=== PATIENT | female | born 1930 | race Caucasian/White ===

== ENCOUNTER 2016-07-13 14:56 | Inpatient (IN) | payer MEDICARE, OTHER ==
[~2016-07-13] VITALS: Ht 152.4 cm; Wt 66.9 kg
[2016-07-13] MEDS ORDERED: ESTR1TAB PO (15:18)
[2016-07-13] MEDS ORDERED: VALS80TA PO (15:18)
[2016-07-13] MEDS ORDERED: FISH1000 PO (15:18)
[2016-07-13] MEDS ORDERED: MULT1TAB10 PO (15:18)
[2016-07-13] MEDS ORDERED: l-thyroxine PO (15:18)
[2016-07-13] MEDS ORDERED: POTA99TA PO (15:18)
[2016-07-13] MEDS ORDERED: vitamin b 12 PO (15:18)
[2016-07-13] MEDS ORDERED: CELE100C PO (15:18)
[2016-07-13] MEDS ORDERED: vitamin d PO (15:18)
[2016-07-13] MEDS ORDERED: OMEP40CA2 PO (15:18)
[2016-07-13] MEDS ORDERED: SIMV40TA2 PO (15:18)
[2016-07-13] MEDS ORDERED: COMB0.2S OP (15:24)
[2016-07-13] MEDS ORDERED: OCUVTAB PO (15:24)
[2016-07-13] MEDS ORDERED: ISOVUE-370 76% 100ML VIAL (Q9967) As Ordered ONE (15:56)
[2016-07-13 15:58] LABS: INR 0.96
[2016-07-13] MEDS ORDERED: NS 1,000 ML IV SCH (16:00)
--- NOTE | 2016-07-13 16:57 | REP ---
CT pulmonary angiogram: With IV contrast: History: Question pulmonary embolism. DVT right leg. Comparison studies: No comparison studies. Contrast dose: 75 mL of Isovue [address] technique: Helical scanning is acquired and overlapping 1.5 mm and contiguous 3 mm axial images are reformatted. In addition, a 3-D work station is deployed to generate thick slab maximum intensity projection images in sagittal and coronal imaging projections. CT pulmonary angiographic findings: There is good opacification of the pulmonary arterial tree. There is a somewhat linear filling defect in the right pulmonary arterial tree involving the right upper lobe, right middle lobe, and right lower lobe pulmonary arteries consistent with pulmonary embolism. No left sided filling defect is appreciated. The thoracic aorta is unremarkable. The lung hernadez are clear. No pleural effusion is seen. Previously noted low density right lobe liver cyst is again seen 3.1 cm in greatest diameter. The visualized upper abdominal structures are otherwise unremarkable. The gallbladder is surgically absent. Impression: Positive study for pulmonary embolus with filling defects in the right middle, lower and upper lobe pulmonary arterial tree branches. Signed by Fernando Childers MD 07/14/2016 07:54 A
[2016-07-13] MEDS ORDERED: SYNT75TA PO (19:12)
[2016-07-13] MEDS ORDERED: hydrALAZINE INJ 20 MG/ML VIAL IV ONE (20:00)
[2016-07-13] MEDS ORDERED: HEPARIN DRIP 25,000 UNITS in APPROPRIATE DILUENT 1 EA IV SCH ×2 (20:56→22:25)
[2016-07-13] MEDS ORDERED: ONDANSETRON 4MG/2ML VIAL (J2405) IV PRN (21:00)
[2016-07-13] MEDS ORDERED: PERCOCET 5MG/325MG TAB PO PRN (21:00)
[2016-07-13] MEDS ORDERED: ONDANSETRON 4 MG TAB (S0181) PO PRN (21:00)
[2016-07-13] MEDS ORDERED: HEPARIN SOD (PORCINE) 5000 UNITS/ML VIAL IV PRN ×2 (21:00→22:15)
[2016-07-13] MEDS ORDERED: LEVOTHYROXINE 0.075 MG TAB (75 MCG) PO SCH (21:00)
[2016-07-13] MEDS ORDERED: ACETAMINOPHEN TAB 650MG DOSE (2X325MG) PO PRN (21:00)
--- NOTE | 2016-07-13 21:34 | HPEPDOC ---
Medical History and Physical Date of Admission Jul 13, 2016 at 20:56 History and Physical HISTORY AND PHYSICAL Date of admission: 07/13/2016 PCP: Dr. Nguyen Chief complaint: Pain and swelling of right lower extremity as well as shortness of breath HPI: 86-year-old female with arthritis, hypertension, hypothyroidism, hyperlipidemia who presented to urgent care today because she had pain and swelling in her right lower extremity for approximately 1 week. She states that she tried to go to her PCP, but was unable to get an appointment. At urgent care , they did a bilateral lower extremity Doppler which revealed a DVT in the right femoral and popliteal veins. She was then sent to the ER for further treatment, and in the ER, she endorsed dyspnea on exertion, and a CTA of her chest shows multiple PEs in the right middle, lower, upper lobes. The patient denies any recent long plane or car rides. She does state that her sister has clots but she is not sure why. When asked if she is ever had blood clots before , she mentions that in 1950, she had a clot on the heel of her foot and they put her on some Motrin for. Of note, the patient is on estrogen at home. The patient states that her last colonoscopy was in 2001 and was normal. She thinks her last mammogram was approximately 2-3 years ago and was also normal. She thinks her last Pap smear was around 2007 and was also normal. Past medical history: Arthritis, hypertension, hypothyroidism, hyperlipidemia Past surgical history: BTL, appendectomy, cholecystectomy, hysterectomy Family history: Cancer, coronary artery disease, sister with blood clots Social history: Patient denies ever smoking tobacco. She does not use any drugs or drink alcohol. Allergies: Colchicine, doxycycline Review of systems: General: Positive for chills, negative for fever Eyes: Negative for vision changes and ocular discharge ENT: Negative for sore throat and nose bleed Cardiovascular: Negative for chest pain and palpitations Respiratory: Negative for cough, positive for shortness of breath GI: Positive for nausea and vomiting, negative for diarrhea and constipation Musculoskeletal: Negative for neck and back pain Skin: Negative for rash Neuro: Positive for headache and dizziness, negative for numbness and tingling Psych: Negative for depression and suicidal ideation Endocrine: Negative for polyuria : Negative For dysuria Heme: Negative for bleeding Home meds: See below Physical exam: Vital signs: Vital Sign - Last 24 Hours 07/13/16 07/13/16 07/13/16 07/13/16 14:57 15:06 15:59 17:22 Temp 97.7 Pulse 71 Resp 16 B/P (MAP) 215/93 (133) 187/87 (120) 155/80 (105) Pulse Ox 97 O2 Delivery Room Air 07/13/16 07/13/16 07/13/16 07/13/16 17:26 17:37 17:41 17:52 Pulse 78 78 B/P (MAP) 210/101 (137) 208/92 (130) Pulse Ox 93 95 07/13/16 07/13/16 07/13/16 07/13/16 17:56 18:11 18:16 18:26 Temp 98.1 Pulse 80 78 74 76 Resp 20 B/P (MAP) 178/90 (119) Pulse Ox 95 97 96 94 O2 Delivery Room Air 07/13/16 07/13/16 07/13/16 07/13/16 18:41 18:56 19:11 19:26 Pulse 78 78 76 74 Pulse Ox 94 94 95 95 07/13/16 07/13/16 07/13/16 07/13/16 19:41 19:56 19:56 20:08 Pulse 76 76 B/P (MAP) 200/98 (132) 200/98 Pulse Ox 94 95 07/13/16 07/13/16 07/13/16 07/13/16 20:11 20:26 20:41 20:56 Pulse 76 78 88 76 B/P (MAP) 190/98 (128) Pulse Ox 96 97 96 Gen.: awake, alert, no acute distress Eyes: Extraocular movements intact, normal sclera ENT: Moist mucous membranes Cardiovascular: RRR, no murmurs rubs or gallops Lungs: clear to auscultation bilaterally, no rales, rhonchi, or wheeze Abdomen: Soft, NT/ND, normal BS Musculoskeletal: normal range of motion Extremities: 2+ edema in the right lower extremity, 1+ edema in the left lower extremity Neuro: alert and oriented 3, normal speech, no focal deficits Psych: Normal mood with congruent affect Labs and radiology: See below BUN 27, creatinine 1.34 Troponin negative BNP normal D-dimer elevated CT of the chest shows PE in the right middle, lower, upper lobes Bilateral lower extremity Doppler shows an occlusive right DVT in the femoral and popliteal veins Assessment and plan: 86-year-old female with arthritis, hypertension, hypothyroidism, hyperlipidemia who presented to urgent care today because she had pain and swelling in her right lower extremity for approximately 1 week. She is admitted with right lower extremity DVT, as well as multiple PEs. 1. VTE: It appears that this is likely the patient's first blood clot, and given her age, it is extremely unlikely that she has underlying clotting disorder. We will check a few hypercoagulability values, but I suspect that potentially this is secondary to the fact that she has been on estrogen. We'll of course hold her home estrogen. Given the multiple clots, we'll start her on a heparin drip and begin bridging her to Coumadin. At this point she is hemodynamically stable, but given her multiple clots we will assess an echocardiogram to ensure there is no strain on her heart. Additionally, one might wonder if she has an underlying malignancy. It appears that the patient is overdue on many of her screening exams, although given her advanced age, it is not unreasonable for her to have stopped screening several years ago. She may consider further evaluation with her PCP for possible underlying malignancy. Her initial troponin is negative, but we will continue to trend these and monitor on telemetry. 2. Accelerated hypertension: We will continue the patient on her home ARB and HCTZ. We will use as needed hydralazine for significantly elevated blood pressures. 3. Hypothyroidism: Continue home Synthroid. 4. Hyperlipidemia: Continue home statin. DVT prophylaxis: Heparin drip bridging to Coumadin Dispo: admit as an inpatient on the service of Dr. Wilkinson CODE STATUS: Full code Vital Signs Vital Signs Date Time Temp Pulse Resp B/P (MAP) Pulse Ox O2 Delivery O2 Flow Rate FiO2 07/13/16 20:56 76 190/98 (128) 96 07/13/16 18:16 98.1 20 Room Air Laboratory Data Labs 24H Laboratory Tests 2 07/13/16 13:52: Prothrombin Time 12.9, Prothromb Time International Ratio 0.96, Activated Partial Thromboplast Time 29.6, Troponin I < 0.02 Home Medications Scheduled (Valsartan/Hydrochlorothia 80-12.5 mg) 1 Tab Tab, 1 TAB PO DAILY (Combigan 0.2-0.5 %) 1 Lucas Lucas, 1 LUCAS OP BID Celecoxib (Celebrex) 100 Mg Cap, 100 MG PO QHS Estradiol (Estradiol) 1 Mg Tab, 2 MG PO DAILY In the Afternoon Levothyroxine Sodium (Synthroid) 75 Mcg Tab, 75 MCG PO QHS Potassium (Potassium) 99 Mg Tab, 99 MG PO QHS Simvastatin - High Dose (Simvastatin) 40 Mg Tab, 40 MG PO QHS Allergies Coded Allergies: Colchicine (Verified Allergy, Severe, GI bleed, 07/13/16) Doxycycline (Verified Allergy, Intermediate, cellulitis, 07/13/16) BELLA PHILLIPS Jul 13, 2016 21:33
[2016-07-13] MEDS ORDERED: HEPARIN SOD (PORCINE) 5000 UNITS/ML VIAL IV ONE (21:45)
[2016-07-13 22:24] LABS: MEAN CORPUSCULAR HEMOGLOBIN 33.1 pg (27.0-33.0); MEAN CORPUSCULAR HGB CONC 34.7 g/dl (32.0-36.5); MEAN CORPUSCULAR VOLUME 95.5 fl (80.0-96.0); RED CELL DISTRIBUTION WIDTH 12.6 % (11.5-14.5); WHITE BLOOD COUNT 9.5 K/mm3 (4.0-10.0)
[2016-07-13] MEDS: WARFARIN SOD 5 MG TAB PO SCH (22:38)
[2016-07-13] MEDS: hydrALAZINE INJ 20 MG/ML VIAL IV PRN (22:39)
[2016-07-13] MEDS: SIMVASTATIN 40 MG TAB PO SCH (23:59)
[2016-07-14] VITALS (12 sets, daily range): BP systolic 139–184; BP diastolic 62–88
[2016-07-14] MEDS: hydrALAZINE INJ 20 MG/ML VIAL IV PRN (01:13)
[2016-07-14 05:14] LABS: BASO % 0.5 % (0.0-1.0); EOS # 0.3 K/mm3 (0.0-0.50); LARGE UNSTAINED CELL # 0.2 K/mm3 (0.0-0.4); LARGE UNSTAINED CELL % 1.6 % (0.0-4.0); LYMPH # 2.1 K/mm3 (1.5-4.5); LYMPH % 19.6 % (24.0-44.0); MEAN CORPUSCULAR HEMOGLOBIN 32.6 pg (27.0-33.0); MEAN CORPUSCULAR HGB CONC 33.9 g/dl (32.0-36.5); MONO # 0.5 K/mm3 (0.0-0.8); MONO % 4.8 % (0.0-5.0); NEUTROPHILS # 7.6 K/mm3 (1.8-7.7); NEUTROPHILS % 70.7 % (36.0-66.0); PLATELET COUNT, AUTOMATED 260 k/mm3 (150-450); RED CELL DISTRIBUTION WIDTH 12.3 % (11.5-14.5); WHITE BLOOD COUNT 10.8 K/mm3 (4.0-10.0)
[2016-07-14 05:28] LABS: INR 1.13
[2016-07-14 05:36] LABS: ANION GAP 10 MEQ/L (8-16); BLOOD UREA NITROGEN 19 MG/DL (7-18); CALCIUM LEVEL 9.2 MG/DL (8.8-10.2); CARBON DIOXIDE LEVEL 26 MEQ/L (21-32); CHLORIDE LEVEL 103 MEQ/L (98-107); CREATININE FOR GFR 1.19 MG/DL (0.55-1.02); GLOMERULAR FILTRATION RATE 45.9 (>32); GLUCOSE, FASTING 101 MG/DL (83-110); MAGNESIUM LEVEL 1.6 MG/DL (1.8-2.4); POTASSIUM SERUM 3.6 MEQ/L (3.5-5.1); SODIUM LEVEL 139 MEQ/L (136-145)
[2016-07-14] MEDS: LEVOTHYROXINE 0.075 MG TAB (75 MCG) PO SCH (05:47)
--- NOTE | 2016-07-14 08:26 | ECGEPIP ---
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 Order Number: [id number] Reading MD: Julio Tim Measurements Intervals [place] Rate: 79 P: 57 [place]: 192 QRS: 30 QRSD: 95 T: 33 QT: 393 QTc: 451 Interpretive Statements SINUS RHYTHM Electronically Signed On 07-14-2016 8:26:01 EDT by Julio Tim
[2016-07-14] MEDS ORDERED: LOVE0.4I2 SC (10:31)
[2016-07-14] MEDS ORDERED: COUM1TAB17 PO (10:31)
[2016-07-14] MEDS: VALSARTAN 80 MG TAB (DIOVAN) PO SCH (10:41)
[2016-07-14] MEDS: hydroCHLOROthiazide 12.5 MG CAPSULE PO SCH (10:41)
--- NOTE | 2016-07-14 10:43 | IPN ---
DATE: 07/14/2016 86-year-old female seen at bedside. She was admitted last evening for pulmonary emboli in the right upper, middle and lower lobe segments. This is a second occurrence with deep vein thrombosis (DVT), pulmonary embolism (PE)/venous thromboembolism for her during her lifetime. She was started on Coumadin with heparin bridging last night since this is a second occurrence. I did have a discussion at bedside regarding lifetime anticoagulation therapy versus IVC filter. At any rate, she needs to be on a minimum of anticoagulation therapy for 6 months since she has a pulmonary emboli. I did discuss options with other medications such as Xa inhibitors; however, for her she is likely a better candidate for Coumadin for anticoagulation therapy. She denies any chest pain, hemoptysis, productive sputum or cough. She does have some dyspnea on exertion, but she assures me this is no different from her baseline. OBJECTIVE: Temperature 98.5, pulse 88, respiratory rate 18, blood pressure (BP) 146/65, SPO2 is 94% on room air. General: The patient appears to be in no acute distress. She is alert and oriented. HEENT: Unremarkable. Lungs: Clear. Heart: Regular rate and rhythm. Abdomen: Soft. Extremities: No edema and no calf tenderness. LABORATORIES: White count 10.8, hemoglobin 13.2 and platelets are 260,000. Sodium 139, potassium 3.6, chloride 103, bicarb 26, anion gap 10, BUN is 19, creatinine is 1.19, glucose 101. CK is 70, CK-MB is 1.7, troponin less than 0.02. ASSESSMENT/PLAN: 1. Venous thromboembolism, second occurrence. She was started on heparin bridging with Coumadin. I am actually going to switch her to Lovenox weight-based subcutaneous every 12 hours. She will need some Lovenox teaching. Continue on Coumadin. Will have nursing contact Dr. Nguyen's office to be sure that he can do outpatient followup with PT/INR checks with Coumadin monitoring. Coagulopathy studies are pending at this time. 2. Accelerated hypertension. Continue to keep an eye on this as she appears to be stable now. 3. Hypothyroidism. Continue Synthroid. 4. Hyperlipidemia. Continue statin. 5. DVT prophylaxis, on Lovenox combined with Coumadin. DISPOSITION: Anticipate home discharge in the next 24 hours.
[2016-07-14] MEDS ORDERED: ENOXAPARIN 80 MG/0.8 ML SYRINGE (J1650) SC SCH (13:00)
[2016-07-14] MEDS: ENOXAPARIN 80 MG/0.8 ML SYRINGE (J1650) SC SCH (15:05)
[2016-07-14] MEDS: WARFARIN SOD 5 MG TAB PO SCH (17:03)
[2016-07-14] MEDS: SIMVASTATIN 40 MG TAB PO SCH (21:57)
--- NOTE | 2016-07-14 22:14 | ECHO ---
DATE OF PROCEDURE: 07/14/2016 AGE: 86 GENDER: Female HEIGHT: 60 inches WEIGHT: 154 pounds BODY SURFACE AREA: 1.67 m2 PATIENT LOCATION: Inpatient, PCU, room 3225 REFERRING PHYSICIAN: Elisa Chew MD INDICATION: Pulmonary embolism. 2D MEASUREMENTS: RV: 3.5 cm LV: 4.0 cm Septum: 1.0 cm Posterior wall: 1.0 cm Aortic root: 2.5 cm LA: 3.5 cm LVEF: 75% DOPPLER MEASUREMENTS: AV: 2.4 m/s LVOT: 1.2 m/s LVOT diameter: 1.6 cm Mean AV systolic gradient: 12 mmHg MV-E: 95, A: 110, EA ratio: 0.9 Early mitral deceleration time: 229 ms E prime: 6.8, A prime: 11, E/E prime ratio: 14 PV: 1.0 m/s Pulmonary artery acceleration time: 106 ms RVSP: 58 mmHg IVC: 1.5 cm COMMENTS: Normal sinus rhythm without intraventricular conduction disturbance. Normal cardiac chamber sizes and wall thickness. On real-time imaging from the parasternal and apical projections wall motion was symmetrical and hyperkinetic. Mildly thickened mitral annulus but normal leaflet thickness and excursion with no posterior systolic buckling. Three equal size aortic cusps with moderately thickened cusp edges and slightly reduced cusp separation. Normal aortic root size. No pericardial effusion. Could not rule out a small sessile vegetation of aortic valve because of the degree of calcification, but no obvious pedunculated vegetation. Color flow Doppler taken from the parasternal and apical projections showed very mild aortic, very mild mitral and mild-moderate tricuspid insufficiency. Guided continuous wave Doppler of her aortic valve and pulsed Doppler study of her LV outflow tract taken from the apical long axis and five chamber projection showed a mildly increased peak systolic velocity and mean gradient with dimensionless index of 0.44 - findings in keeping with some mild calcific aortic stenosis. Pulsed and continuous wave Doppler of her LV inflow tract taken from the apical four-chamber projection showed normal diastolic filling velocities against mitral stenosis. There was more prominent late diastolic/atrial dependent filling pattern. Degree of LV diastolic dysfunction was further confirmed by prolonged early mitral deceleration time and tissue Doppler of her mitral annulus. Her current estimated mean left atrial pressure was upper limits of normal. Pulsed and continuous wave Doppler of her pulmonary trunk showed a normal peak systolic velocity against RV outflow tract obstruction. Her pulmonary artery acceleration time was at least mildly abbreviated consistent with an elevated pulmonary vascular resistance. Guided continuous wave Doppler of her tricuspid valve allowed our estimation of her right ventricular systolic pressure (moderately increased). Her inferior vena cava was of normal size with normal respiratory collapse against an elevated central venous pressure. Color flow Doppler taken from the subcostal four-chamber projection showed a small patent foremen ovale with subtle [id number] shunting. CONCLUSIONS: Normal left ventricular size, wall thickness and hyperkinetic wall motion. Left atrial size upper limits of normal with Doppler evidence of impairment of LV diastolic function, but current estimated mean left atrial pressure upper limits of normal. Normal right heart chamber sizes, wall thickness and wall motion with Doppler evidence of moderate pulmonary hypertension. Normal inferior vena cava (IVC) size and collapse against an elevated central venous pressure. Mild calcific aortic stenosis with very mild insufficiency. Mild mitral annular calcification with very mild insufficiency.
[2016-07-14] MEDS ORDERED: SLF 3 ML SYR IV PRN (23:45)
[2016-07-15 03:35] VITALS: BP 167/72
[2016-07-15] MEDS: ENOXAPARIN 80 MG/0.8 ML SYRINGE (J1650) SC SCH (03:39)
[2016-07-15] MEDS: LEVOTHYROXINE 0.075 MG TAB (75 MCG) PO SCH (04:59)
[2016-07-15 05:51] LABS: BASO # 0.1 K/mm3 (0.0-0.2); BASO % 0.8 % (0.0-1.0); EOS # 0.3 K/mm3 (0.0-0.50); EOS % 3.7 % (0.0-3.0); LARGE UNSTAINED CELL # 0.2 K/mm3 (0.0-0.4); LARGE UNSTAINED CELL % 1.9 % (0.0-4.0); LYMPH # 2.1 K/mm3 (1.5-4.5); LYMPH % 21.4 % (24.0-44.0); MEAN CORPUSCULAR HEMOGLOBIN 32.6 pg (27.0-33.0); MEAN CORPUSCULAR HGB CONC 33.4 g/dl (32.0-36.5); MEAN CORPUSCULAR VOLUME 97.6 fl (80.0-96.0); MONO # 0.6 K/mm3 (0.0-0.8); MONO % 6.5 % (0.0-5.0); NEUTROPHILS % 65.7 % (36.0-66.0); PLATELET COUNT, AUTOMATED 247 k/mm3 (150-450); RED CELL DISTRIBUTION WIDTH 12.8 % (11.5-14.5); WHITE BLOOD COUNT 9.1 K/mm3 (4.0-10.0)
[2016-07-15 05:58] LABS: INR 1.32
[2016-07-15] MEDS ORDERED: SLF 3 ML SYR IV SCH (06:00)
[2016-07-15 06:09] LABS: CALCIUM LEVEL 9.2 MG/DL (8.8-10.2); CREATININE FOR GFR 1.44 MG/DL (0.55-1.02); GLOMERULAR FILTRATION RATE 36.8 (>32); MAGNESIUM LEVEL 1.7 MG/DL (1.8-2.4); POTASSIUM SERUM 3.9 MEQ/L (3.5-5.1)
[2016-07-15 08:00] VITALS: BP 105/60
[2016-07-15 08:37] VITALS: BP 167/72
[2016-07-15] MEDS: VALSARTAN 80 MG TAB (DIOVAN) PO SCH (08:37)
[2016-07-15] MEDS: hydroCHLOROthiazide 12.5 MG CAPSULE PO SCH (08:38)
[2016-07-15] MEDS ORDERED: MAGNESIUM OXIDE 400 MG TAB (MAG-OX) PO ONE (10:30)
[2016-07-15] MEDS ORDERED: LOVE0.4I2 SC (11:19)
--- NOTE | 2016-07-15 11:35 | DSES ---
DATE OF ADMISSION: 07/13/2016 DATE OF DISCHARGE: PRIMARY CARE PROVIDER: Dr. Nguyen CONSULTANTS: None. PROCEDURES: None. COMPLICATIONS: None. ADMISSION/DISCHARGE DIAGNOSES: 1. Pulmonary emboli with recurrent venous thromboembolism. 2. Accelerated hypertension, stable. May need further outpatient adjustments. 3. Hypothyroidism. 4. Hyperlipidemia. BRIEF HOSPITAL COURSE: 86-year-old female admitted on 07/13/2016 had some increasing shortness of breath, leg pain and found to have multiple pulmonary emboli on the right upper, middle and lower lobes on CT angiogram. We did discuss different options for treatment for this. She did elect to go with Coumadin therapy, which she will need some bridging therapy in the immediate time frame. Initially she was started on heparin drip. I did switch her to weight-based Lovenox. Will get her adjusted to the 1.5 mg/kg daily. She will need to undergo some further nursing teaching today for injections of the daily Lovenox, which she will need for 7 days for bridging while she continues on Coumadin. Will also need to make arrangements with Dr. Nguyen's office and perhaps nursing as an outpatient for daily INR checks so her Coumadin can be adjusted appropriately. She understands this plan. Additionally, she likely will need to be on this a minimum of 6 months. However, this likely is a recurrence which she may need lifetime therapy for. I will defer that discussion to her primary care provider. Additionally, she had a 2D echo that was done. The result of that test showed 75% left ventricular ejection fraction, relatively unremarkable echo except for mild calcified aortic stenosis with very mild insufficiency. There was no related right heart failure. DISCHARGE CONDITION: Good. DISPOSITION: Discharged to home. DISCHARGE MEDICATIONS: - Lovenox 100 mg daily - Coumadin 5 mg daily - Combigan eye drops twice a day - Synthroid 75 mcg daily - potassium one tablet at bedtime - Simvastatin 40 mg at bedtime - valsartan/hydrochlorothiazide 80/12.5 mg one tablet daily. 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 DISCHARGE INSTRUCTIONS: Discharge to home. Activity as tolerated. Medications as outlined above. Seek medical attention should symptoms worsen or progress. She will need daily INR checks with further Coumadin adjustments with her primary care provider. Discharge took 35 minutes.
[2016-07-15 12:00] VITALS: BP 111/66
== END 2016-07-15 14:16 | disposition home or self-care (01) | DRG 299 ==
LOC: M ED 16:12 → M ED INP 20:56 → M PCU 07-14 16:32
PROVIDERS: ADMIT Hospitalist; ATTEND Hospitalist
DX: I82.411 Acute embolism and thrombosis of right femoral vein (principal); I26.99 Other pulmonary embolism without acute cor pulmonale; I82.431 Acute embolism and thrombosis of right popliteal vein; R60.9 Edema, unspecified; E03.9 Hypothyroidism, unspecified; E78.5 Hyperlipidemia, unspecified; I10 Essential (primary) hypertension; Z79.899 Other long term (current) drug therapy; Z79.01 Long term (current) use of anticoagulants; Z88.8 Allergy status to other drugs, medicaments and biological substances

== ENCOUNTER → 2016-07-13 | Outpatient (CLI) | payer MEDICARE, OTHER ==
[~2016-07-13] MED LIST: CELE100C PO; COMB0.2S OP; COUM1TAB17 PO; ESTR1TAB PO; FISH1000 PO; LOVE0.4I2 SC; MULT1TAB10 PO; OCUVTAB PO; OMEP40CA2 PO; POTA99TA PO; SIMV40TA2 PO; SYNT75TA PO; VALS80TA PO; l-thyroxine PO; vitamin b 12 PO; vitamin d PO
--- NOTE | 2016-07-13 14:32 | REP ---
BILATERAL LOWER EXTREMITY DUPLEX VENOUS ULTRASOUND: HISTORY: Bilateral leg swelling. FINDINGS: The deep veins are anechoic and fully compressible on two-dimensional scanning in the left lower extremity from the groin to the popliteal fossa. Color flow and spectral Doppler interrogation are unremarkable on the left. There is no evidence of deep venous thrombosis on the left. On the right, the common femoral and proximal femoral veins are anechoic and compressible. There is occlusive thrombosis however in the distal femoral vein on the right and in the popliteal vein on the right. IMPRESSION: Positive study with occlusive venous thrombosis in the femoral vein and popliteal vein on the right side. No DVT on the left. Signed by Fernando Childers MD 07/13/2016 04:46 P
[2016-07-13 14:46] LABS: CREATININE FOR GFR 1.34 MG/DL (0.55-1.02); POTASSIUM SERUM 3.9 MEQ/L (3.5-5.1)
[2016-07-13 15:33] LABS: BASO # 0.1 K/mm3 (0.0-0.2); BASO % 0.8 % (0.0-1.0); EOS # 0.4 K/mm3 (0.0-0.50); EOS % 4.8 % (0.0-3.0); LARGE UNSTAINED CELL # 0.2 K/mm3 (0.0-0.4); LYMPH # 1.6 K/mm3 (1.5-4.5); LYMPH % 20.8 % (24.0-44.0); MEAN CORPUSCULAR HEMOGLOBIN 32.5 pg (27.0-33.0); MEAN CORPUSCULAR HGB CONC 33.2 g/dl (32.0-36.5); MEAN CORPUSCULAR VOLUME 97.8 fl (80.0-96.0); MONO # 0.5 K/mm3 (0.0-0.8); MONO % 5.8 % (0.0-5.0); NEUTROPHILS # 5.2 K/mm3 (1.8-7.7); NEUTROPHILS % 65.7 % (36.0-66.0); PLATELET COUNT, AUTOMATED 239 k/mm3 (150-450); RED CELL DISTRIBUTION WIDTH 12.4 % (11.5-14.5); WHITE BLOOD COUNT 7.8 K/mm3 (4.0-10.0)
== END ==
LOC: M RAD 13:29
PROVIDERS: ATTEND Physician Assistant
DX: I82.411 Acute embolism and thrombosis of right femoral vein (principal); I82.431 Acute embolism and thrombosis of right popliteal vein; R60.9 Edema, unspecified; M79.605 Pain in left leg

== ENCOUNTER → 2016-07-16 | Outpatient (CLI) | payer MEDICARE, OTHER ==
[2016-07-16 10:32] LABS: INR 2.18
== END ==
LOC: M LAB 09:27
PROVIDERS: ATTEND Student in an Organized Health Care Education/Training Program
DX: I26.99 Other pulmonary embolism without acute cor pulmonale (principal); I82.401 Acute embolism and thrombosis of unspecified deep veins of right lower extremity; Z79.01 Long term (current) use of anticoagulants

== ENCOUNTER → 2016-07-17 | Outpatient (CLI) | payer MEDICARE, OTHER ==
[2016-07-17 06:47] LABS: INR 3.47
== END ==
LOC: M LAB 06:02
PROVIDERS: ATTEND Student in an Organized Health Care Education/Training Program
DX: I82.401 Acute embolism and thrombosis of unspecified deep veins of right lower extremity (principal); I26.99 Other pulmonary embolism without acute cor pulmonale

== ENCOUNTER → 2016-07-18 | Outpatient (CLI) | payer MEDICARE, OTHER ==
[2016-07-18 09:28] LABS: INR 3.78
== END ==
LOC: M LAB 08:22
PROVIDERS: ATTEND Student in an Organized Health Care Education/Training Program
DX: I26.99 Other pulmonary embolism without acute cor pulmonale (principal); I82.401 Acute embolism and thrombosis of unspecified deep veins of right lower extremity

== ENCOUNTER → 2016-07-20 | Outpatient (CLI) | payer MEDICARE, OTHER ==
[2016-07-20 06:56] LABS: INR 2.79
== END ==
LOC: M LAB 06:02
PROVIDERS: ATTEND Student in an Organized Health Care Education/Training Program
DX: I82.401 Acute embolism and thrombosis of unspecified deep veins of right lower extremity (principal); I26.99 Other pulmonary embolism without acute cor pulmonale

== ENCOUNTER 2016-07-23 21:50 | Emergency (ER) | payer MEDICARE, OTHER ==
[~2016-07-23] VITALS: Ht 121.9 cm; Wt 69.1 kg
[~2016-07-23 21:50] MED LIST changes: -COMB0.2S OP; +COMB0.2S OU
[2016-07-23 23:43] LABS: BASO # 0.1 K/mm3 (0.0-0.2); BASO % 0.7 % (0.0-1.0); EOS # 0.3 K/mm3 (0.0-0.50); EOS % 2.2 % (0.0-3.0); LARGE UNSTAINED CELL # 0.2 K/mm3 (0.0-0.4); LARGE UNSTAINED CELL % 1.3 % (0.0-4.0); LYMPH # 1.7 K/mm3 (1.5-4.5); LYMPH % 12.2 % (24.0-44.0); MEAN CORPUSCULAR HEMOGLOBIN 32.2 pg (27.0-33.0); MEAN CORPUSCULAR HGB CONC 33.6 g/dl (32.0-36.5); MEAN CORPUSCULAR VOLUME 95.9 fl (80.0-96.0); MONO # 0.7 K/mm3 (0.0-0.8); MONO % 5.4 % (0.0-5.0); NEUTROPHILS # 9.8 K/mm3 (1.8-7.7); NEUTROPHILS % 78.2 % (36.0-66.0); PLATELET COUNT, AUTOMATED 377 k/mm3 (150-450); RED CELL DISTRIBUTION WIDTH 12.3 % (11.5-14.5); WHITE BLOOD COUNT 12.5 K/mm3 (4.0-10.0)
[2016-07-23 23:52] LABS: INR 4.1
--- NOTE | 2016-07-24 00:10 | REPUSA ---
Clinical history: Pain, swelling. Findings: There iis occlusive thrombus in the distal right superficial femoral vein. Recanalization o f thrombus There is noted in the midportion of the right superficial femoral vein and right poplitea l vein. Impression: Deep vein thrombosis in the superficial femoral and popliteal veins as described, which is occlusive in the distal right superficial femoral vein.
[2016-07-24 00:12] LABS: CALCIUM LEVEL 9.5 MG/DL (8.8-10.2); CREATININE FOR GFR 1.48 MG/DL (0.55-1.02); GLOMERULAR FILTRATION RATE 35.7 (>32); POTASSIUM SERUM 3.6 MEQ/L (3.5-5.1)
[2016-07-24] MEDS ORDERED: KETOROLAC 30 MG/ML VIAL (J1885) IV ONE (00:30)
[2016-07-24] MEDS ORDERED: dexameTHASONE 20 MG/5 ML VIAL (J1100) IV ONE (00:30)
[2016-07-24 01:12] VITALS: BP 140/94
[2016-10-27] MEDS ORDERED: CELE1CAP7 PO (09:06)
[2016-10-27] MEDS ORDERED: VALS160T3 PO (09:06)
[2016-10-27] MEDS ORDERED: RANI150T PO (09:06)
[2016-10-27] MEDS ORDERED: OCUVCAP2 PO (09:35)
[2016-10-27] MEDS ORDERED: XARE15TA PO (09:51)
[2016-10-27] MEDS ORDERED: SODI5OPD OU (09:51)
== END 2016-07-24 01:15 | disposition home or self-care (01) ==
LOC: M ED 21:50
DX: M79.604 Pain in right leg (principal); I82.401 Acute embolism and thrombosis of unspecified deep veins of right lower extremity; Z86.711 Personal history of pulmonary embolism; E03.9 Hypothyroidism, unspecified; M10.9 Gout, unspecified; I10 Essential (primary) hypertension; E78.5 Hyperlipidemia, unspecified; Z79.899 Other long term (current) drug therapy; Z88.1 Allergy status to other antibiotic agents; Z88.8 Allergy status to other drugs, medicaments and biological substances
CPT/HCPCS: 80048; 85025; 85610; 85730; 93971; 96374; 96375; 99283; J1100; J1885

== ENCOUNTER → 2016-07-23 | Outpatient (CLI) | payer MEDICARE, OTHER ==
[2016-07-23 06:55] LABS: INR 4.58
== END ==
LOC: M LAB 06:20
PROVIDERS: ATTEND Student in an Organized Health Care Education/Training Program
DX: I82.401 Acute embolism and thrombosis of unspecified deep veins of right lower extremity (principal); I26.99 Other pulmonary embolism without acute cor pulmonale; Z79.01 Long term (current) use of anticoagulants

== ENCOUNTER → 2016-07-27 | Outpatient (CLI) | payer MEDICARE ==
[~2016-07-27] MED LIST changes: +COMB0.2S OP; -COMB0.2S OU
[2016-07-27 09:54] LABS: MEAN CORPUSCULAR HEMOGLOBIN 32.9 pg (27.0-33.0); MEAN CORPUSCULAR HGB CONC 33.8 g/dl (32.0-36.5); MEAN CORPUSCULAR VOLUME 97.4 fl (80.0-96.0); RED CELL DISTRIBUTION WIDTH 12.3 % (11.5-14.5); WHITE BLOOD COUNT 8.7 K/mm3 (4.0-10.0)
[2016-07-27 11:33] LABS: CALCIUM LEVEL 9.3 MG/DL (8.8-10.2); CREATININE FOR GFR 1.47 MG/DL (0.55-1.02); URIC ACID 10.1 MG/DL (2.6-6.0)
== END ==
LOC: M LAB 09:06
PROVIDERS: ATTEND Family Medicine
DX: M25.50 Pain in unspecified joint (principal); Z79.01 Long term (current) use of anticoagulants

== ENCOUNTER → 2016-10-05 | Outpatient (CLI) | payer MEDICARE, OTHER ==
[~2016-10-05] MED LIST changes: +CELE1CAP7 PO; -COMB0.2S OP; +COMB0.2S OU; +E-Z-GAS II EFFERVESCENT PACKET (SODIUM BICARB./CITRIC ACID/SIMETHICONE) As Ordered ONE; +E-Z-HD 98% w/w 340GM SUSP BTL As Ordered ONE; +E-Z-PAQUE 96% w/w SUSP 176GM BTL As Ordered ONE; +OCUVCAP2 PO; +RANI150T PO; +SODI5OPD OU; +VALS160T3 PO; +XARE15TA PO
--- NOTE | 2016-10-05 11:01 | REP ---
ESOPHAGRAM: The procedure was performed by CHRISTOPHE Sesay under the direct supervision of Dr. Childers. All imaging was reviewed with Dr. Childers prior to dictation. A clinical dermatologist film showed no organomegaly or pathological masses. The patient was able to ingest liquid barium and air in a quantity sufficient to produce a double contrast examination. The oral and pharyngeal stages of deglutition appear unremarkable. Esophageal transport is prompt and efficient. There was no evidence of a esophagitis, structure or mucosal ring. A small hiatal hernia is noted. Gastroesophageal reflux was observed on this exam to the level of the cervical esophagus. Tertiary contractions were also noted. The stomach rodrigez were normally outlined. The rugal folds are smooth and regular. There was no evidence of gastritis, neoplasm or ulcerative disease. IMPRESSION: Reflux to the cervical esophagus. Tertiary contractions and a small hiatal hernia were noted. Fluoroscopy time is 1 minute 28 seconds. Reviewed by CHRISTOPHE Cheatham 10/05/2016 11:09 AEdited and Signed by Fernando Childers MD 10/05/2016 02:41 P
== END ==
LOC: M RAD 08:55
PROVIDERS: ATTEND Physician Assistant Medical
DX: R13.10 Dysphagia, unspecified (principal); R12 Heartburn; K44.9 Diaphragmatic hernia without obstruction or gangrene; K21.9 Gastro-esophageal reflux disease without esophagitis

== ENCOUNTER 2016-11-02 06:35 | Outpatient (CLI) | payer MEDICARE, OTHER ==
[~2016-11-02] VITALS: Ht 152.4 cm; Wt 68.4 kg
[~2016-11-02 06:35] MED LIST changes: -E-Z-GAS II EFFERVESCENT PACKET (SODIUM BICARB./CITRIC ACID/SIMETHICONE) As Ordered ONE; -E-Z-HD 98% w/w 340GM SUSP BTL As Ordered ONE; -E-Z-PAQUE 96% w/w SUSP 176GM BTL As Ordered ONE
[2016-11-02] MEDS ORDERED: PROPOFOL 200 MG/20 ML VIAL As Ordered ONE (07:02)
[2016-11-02] MEDS ORDERED: LIDOCAINE 2% INJ 100 MG/5 ML SDV (FOR ANES.) As Ordered ONE (07:05)
[2016-11-02] MEDS ORDERED: NS 1,000 ML IV ONE (07:15)
--- NOTE | 2016-11-02 07:48 | ROOR ---
Patient Name: Mi Walker Procedure Date: 11/02/2016 7:35 AM Date of : 1930 Age: 86 Room: [facility] Gender: Female Note Status: Finalized Procedure: Upper GI endoscopy Indications: Oropharyngeal phase dysphagia, Heartburn Providers: Job CROCKER MD Referring MD: Malachi Nguyen MD Requesting Provider: Medicines: Monitored Anesthesia Care Complications: No immediate complications. Procedure: Pre-Anesthesia Assessment: - The heart rate, respiratory rate, oxygen saturations, blood pressure, adequacy of pulmonary ventilation, and response to care were monitored throughout the procedure. The Endoscope was introduced through the mouth, and advanced to the second part of duodenum. The upper GI endoscopy was accomplished without difficulty. The patient tolerated the procedure well. Findings: Small Hiatal Hernia. The esophagus was normal. The stomach was normal. The examined duodenum was normal. Impression: - Small Hiatal Hernia. - Normal esophagus. - Normal stomach. - Normal examined duodenum. - No specimens collected. Recommendation: - Continue present medications. - Consider increased Omeprazole to twice a day dosing for continued symptoms. - Observe patient's clinical course. Job Crocker MD Job CROCKER MD 11/02/2016 7:47:39 AM This report has been signed electronically. Number of Addenda: 0 Note Initiated On: 11/02/2016 7:35 AM Estimated Blood Loss: Estimated blood loss: none.
[2016-11-02] MEDS ORDERED: ALBUTEROL SULFATE 2.5 MG/0.5 ML INH NEB SOLN As Ordered ONE (07:59)
[2016-11-02] MEDS ORDERED: ALBUTEROL SULFATE 2.5 MG/0.5 ML INH NEB SOLN INH ONE (08:15)
[2016-11-02 08:18] VITALS: BP 169/69
== END 2016-11-02 08:30 | disposition home or self-care (01) ==
LOC: M OPP 06:35
PROVIDERS: ATTEND Internal Medicine Gastroenterology
DX: R13.12 Dysphagia, oropharyngeal phase (principal); R12 Heartburn; K44.9 Diaphragmatic hernia without obstruction or gangrene; K21.9 Gastro-esophageal reflux disease without esophagitis; I12.9 Hypertensive chronic kidney disease with stage 1 through stage 4 chronic kidney disease, or unspecified chronic kidney disease; E78.5 Hyperlipidemia, unspecified; R01.1 Cardiac murmur, unspecified; M10.9 Gout, unspecified; E03.9 Hypothyroidism, unspecified; Z86.718 Personal history of other venous thrombosis and embolism; M19.90 Unspecified osteoarthritis, unspecified site; M54.2 Cervicalgia; E55.9 Vitamin D deficiency, unspecified; Z86.711 Personal history of pulmonary embolism; N18.9 Chronic kidney disease, unspecified; R32 Unspecified urinary incontinence; Z88.8 Allergy status to other drugs, medicaments and biological substances; Z79.899 Other long term (current) drug therapy

== ENCOUNTER → 2017-08-31 | Outpatient (REF) | payer MEDICARE, OTHER ==
[2017-08-31 18:12] LABS: APPEARANCE, URINE HAZY (CLEAR); BACTERIA, URINE AUTO NEGATIVE (NEGATIVE); BILIRUBIN, URINE AUTO NEGATIVE (NEGATIVE); BLOOD, URINE BLOOD NEGATIVE (NEGATIVE); COLOR, URINE YELLOW (YELLOW); GLUCOSE, URINE (UA) AUTO NEGATIVE (NEGATIVE); KETONE, URINE AUTO NEGATIVE (NEGATIVE); LEUKOCYTE ESTERASE, URINE AUTO TRACE (NEGATIVE); MUCUS, URINE SMALL (NEGATIVE); NITRITE, URINE AUTO NEGATIVE (NEGATIVE); PROTEIN, URINE AUTO NEGATIVE (NEGATIVE); RBC, URINE AUTO 4 /HPF (0-3); SPECIFIC GRAVITY URINE AUTO 1.016 (1.002-1.035); SQUAMOUS EPITHELIAL CELL UR AU 4 /HPF (0-6); UROBILINOGEN, URINE AUTO 0.2 mg/dL (0.0-2.0); WBC, URINE AUTO 2 /HPF (0-3)
== END ==
LOC: M LAB REF 17:04
DX: N39.41 Urge incontinence (principal)
CPT/HCPCS: 81001

== ENCOUNTER → 2018-03-16 | Outpatient (REF) | payer MEDICARE, OTHER ==
[2018-03-16 13:37] LABS: BASO # 0.1 10^3/uL (0.0-0.2); BASO % 1.4 % (0.0-1.0); EOS # 0.4 10^3/uL (0.0-0.50); EOS % 5.2 % (0.0-3.0); HEMATOCRIT 40.4 % (36.0-47.0); HEMOGLOBIN 13.1 g/dl (12.0-15.5); LYMPH # 2.1 10^3/uL (1.5-4.5); LYMPH % 27.5 % (24.0-44.0); MEAN CORPUSCULAR HGB CONC 32.4 g/dl (32.0-36.5); MEAN CORPUSCULAR VOLUME 95.7 fl (80.0-96.0); MONO # 0.8 10^3/uL (0.0-0.8); MONO % 10.6 % (0.0-5.0); NEUTROPHILS # 4.2 10^3/uL (1.8-7.7); PLATELET COUNT, AUTOMATED 281 10^3/uL (150-450); RED BLOOD COUNT 4.22 10^6/uL (4.00-5.40); WHITE BLOOD COUNT 7.7 10^3/uL (4.0-10.0)
[2018-03-16 13:54] LABS: ALT/SGPT 20 U/L (12-78); BILIRUBIN,TOTAL 0.5 MG/DL (0.2-1.0); BLOOD UREA NITROGEN 18 MG/DL (7-18); C REACTIVE PROTEIN QUANTITATIV < 0.30 MG/DL (0.00-0.30); CALCIUM LEVEL 9.7 MG/DL (8.8-10.2); CARBON DIOXIDE LEVEL 27 MEQ/L (21-32); CHLORIDE LEVEL 106 MEQ/L (98-107); CREATININE FOR GFR 1.56 MG/DL (0.55-1.30); GLOMERULAR FILTRATION RATE 33.5 (>32); GLUCOSE, FASTING 97 MG/DL (70-100); POTASSIUM SERUM 4.6 MEQ/L (3.5-5.1); RHEUMATOID FACTOR QUANT < 10.0 IU/ML (<15.0); SODIUM LEVEL 139 MEQ/L (136-145); TOTAL PROTEIN 7.1 GM/DL (6.4-8.2); URIC ACID 6.6 MG/DL (2.6-6.0)
[2018-03-16 14:10] LABS: ERYTHROCYTE SEDIMENTATION RATE 22 mm/hr (0-42)
== END ==
LOC: M SFHCPLAZ 10:47
PROVIDERS: ATTEND Internal Medicine Rheumatology
DX: M10.09 Idiopathic gout, multiple sites (principal)
CPT/HCPCS: 36415; 80053; 84550; 85025; 85652; 86140; 86200; 86431; G0463

== ENCOUNTER → 2019-02-28 | Outpatient (REF) | payer MEDICARE, OTHER ==
[~2019-02-28] MED LIST changes: -OMEP40CA2 PO; +OMEP40CA97 PO; -SIMV40TA2 PO; +SIMV40TA20 PO
[2019-02-28 13:31] LABS: BACTERIA, URINE AUTO NEGATIVE (NEGATIVE); MUCUS, URINE SMALL (NEGATIVE); RBC, URINE AUTO 1 /HPF (0-3); SQUAMOUS EPITHELIAL CELL UR AU 1 /HPF (0-6); TRANSITIONAL EPITHELIAL AUTO 1 /HPF; WBC, URINE AUTO 0 /HPF (0-3)
== END ==
LOC: M SMT 12:17
PROVIDERS: ATTEND Specialist
DX: R32 Unspecified urinary incontinence (principal)
CPT/HCPCS: 51798; 81015; 87086; G0463

== ENCOUNTER 2019-03-21 10:54 | Outpatient (RCR) | payer MEDICARE, OTHER | END 2019-04-08 | LOC: M PT 10:54 | PROVIDERS: ATTEND Specialist | DX: R32 Unspecified urinary incontinence (principal); R15.9 Full incontinence of feces ==

== ENCOUNTER 2019-05-04 09:53 | Outpatient (RCR) | payer MEDICARE, OTHER | END 2019-05-09 | LOC: M PT 09:53 | PROVIDERS: ATTEND Specialist | DX: R32 Unspecified urinary incontinence (principal); R15.9 Full incontinence of feces ==

== ENCOUNTER 2019-05-25 10:53 | Outpatient (RCR) | payer MEDICARE, OTHER | END 2019-06-08 | LOC: M PT 10:53 | PROVIDERS: ATTEND Specialist | DX: R32 Unspecified urinary incontinence (principal); R15.9 Full incontinence of feces ==

== ENCOUNTER → 2019-10-14 | Outpatient (CLI) | payer MEDICARE, OTHER ==
[~2019-10-14] MED LIST changes: +ACET-683 PO; +ACET1TAB16 PO; +ACET1TAB55 PO; +AMLO1TAB24 PO; +AMLO1TAB25 PO; +ATOR1TAB21 PO; +CEFA1INJ4 IV; +CEPH500C PO; +COZA50TA PO; +DOCU100C16 PO; +FLEEENE12 PR; +HM P99TA PO; +HYDR25TA PO; +HYDR50TA PO; +LATA0.0015 OU; +LEVO75TA4 PO; +LOSA100T50 PO; +MECL12.589 PO; +METO1TAB87 PO; +OMEP-218 PO; +OMEP20TA18 PO; +ONDA-83 PO; +PEG1POW PO; +RISATAB3 PO; +SENN-52 PO; +TRAM50TA2 PO; +XALA0.007 OU
== END ==
LOC: M LABSMTC 09:38
PROVIDERS: ATTEND Orthopaedic Surgery
DX: Z20.828 Contact with and (suspected) exposure to other viral communicable diseases (principal)

== ENCOUNTER → 2019-10-19 | Outpatient (CLI) | payer MEDICARE, OTHER | LOC: M LABSMTC 09:57 | PROVIDERS: ATTEND Orthopaedic Surgery | DX: Z20.828 Contact with and (suspected) exposure to other viral communicable diseases (principal) ==

== ENCOUNTER 2019-10-27 15:07 | Inpatient (IN) | payer MEDICARE, OTHER ==
[2019-10-27] VITALS (8 sets, daily range): BP systolic 111–199; BP diastolic 54–83
[~2019-10-27] VITALS: Ht 152.4 cm; Wt 70.3 kg
[~2019-10-27 15:07] MED LIST changes: -ACET-683 PO; -ACET1TAB16 PO; -ACET1TAB55 PO; -AMLO1TAB24 PO; -AMLO1TAB25 PO; -ATOR1TAB21 PO; -CEFA1INJ4 IV; -CEPH500C PO; -COZA50TA PO; -DOCU100C16 PO; -FLEEENE12 PR; -HM P99TA PO; -HYDR25TA PO; -HYDR50TA PO; -LATA0.0015 OU; -LEVO75TA4 PO; -LOSA100T50 PO; -MECL12.589 PO; -METO1TAB87 PO; -OMEP-218 PO; -OMEP20TA18 PO; -ONDA-83 PO; -PEG1POW PO; -RISATAB3 PO; -SENN-52 PO; -TRAM50TA2 PO; -XALA0.007 OU
[2019-10-27] MEDS ORDERED: ACET1TAB16 PO (15:14)
[2019-10-27] MEDS ORDERED: OMEP-218 PO (15:14)
[2019-10-27] MEDS ORDERED: LOSA100T50 PO (15:14)
[2019-10-27] MEDS ORDERED: MORPHINE 4 MG/ML 1ML VIAL/SYRINGE (J2270) IV ONE ×2 (16:00→17:15)
--- NOTE | 2019-10-27 16:07 | REPVR ---
PROCEDURE INFORMATION: Exam: CT Head Without Contrast Exam date and time: 10/27/2019 3:46 PM Age: 89 years old Clinical indication: Numbness / parasthesia; Left; Additional info: Hypertension, left arm numbness TECHNIQUE: Imaging protocol: Computed tomography of the head without contrast. Radiation optimization: All CT scans at this facility use at least one of these dose optimization techniques: automated exposure control; mA and/or kV adjustment per patient size (includes targeted exams where dose is matched to clinical indication); or iterative reconstruction. COMPARISON: No relevant prior studies available. FINDINGS: Brain: There is abnormal lucency within the left superior cerebellar hemisphere best seen on series 203 images 26-29. This measures 2 cm in length. No hemorrhage or extra-axial collection. No mass. Ventricles: No ventriculomegaly. Bones/joints: Unremarkable. No acute fracture. Paranasal sinuses: Visualized sinuses are unremarkable. No fluid levels. Mastoid air cells: Visualized mastoid air cells are well aerated. Soft tissues: Unremarkable. IMPRESSION: Acute left superior cerebellar infarct. Electronically signed by: Jayson Busch On 10/27/2019 16:06:48 PM
[2019-10-27] MEDS ORDERED: LABETALOL 100MG/20ML VIAL IV STA ×2 (16:16→17:10)
--- NOTE | 2019-10-27 16:21 | REPVR ---
PROCEDURE INFORMATION: Exam: XR Chest, 2 Views Exam date and time: 10/27/2019 4:04 PM Age: 89 years old Clinical indication: Other: Hypertension TECHNIQUE: Imaging protocol: XR of the chest Views: 2 views. COMPARISON: No relevant prior studies available. FINDINGS: Lungs: Unremarkable. No consolidation. Pleural space: Unremarkable. No pleural effusion. No pneumothorax. Heart/Mediastinum: Unremarkable. No cardiomegaly. Bones/joints: Unremarkable. IMPRESSION: No acute findings. Electronically signed by: Jayson Busch On 10/27/2019 16:21:23 PM
[2019-10-27 16:25] LABS: BASO # 0.1 10^3/uL (0.0-0.2); BASO % 0.7 % (0.0-1.0); EOS # 0.5 10^3/uL (0.0-0.5); EOS % 3.9 % (0.0-3.0); HEMATOCRIT 39.6 % (36.0-47.0); HEMOGLOBIN 12.8 g/dl (12.0-15.5); LYMPH # 1.6 10^3/uL (1.5-5.0); MEAN CORPUSCULAR HEMOGLOBIN 31.4 pg (27.0-33.0); MEAN CORPUSCULAR HGB CONC 32.3 g/dl (32.0-36.5); MEAN CORPUSCULAR VOLUME 97.3 fl (80.0-96.0); MONO # 1.1 10^3/uL (0.0-0.8); MONO % 9.7 % (0.0-5.0); NEUTROPHILS # 8.4 10^3/uL (1.5-8.5); NEUTROPHILS % 71.4 % (36.0-66.0); PLATELET COUNT, AUTOMATED 253 10^3/uL (150-450); RED BLOOD COUNT 4.07 10^6/uL (4.00-5.40); WHITE BLOOD COUNT 11.8 10^3/uL (4.0-10.0)
[2019-10-27 16:35] LABS: INR 1.13; PROTHROMBIN TIME 14.8 SECONDS (12.5-14.3)
[2019-10-27 16:36] LABS: PARTIAL THROMBOPLASTIN TIME 36.8 SECONDS (24.2-38.5)
[2019-10-27 16:58] LABS: ALBUMIN 3.6 GM/DL (3.2-5.2); ALT/SGPT 18 U/L (12-78); BILIRUBIN,DIRECT 0.1 MG/DL (0.0-0.2); BILIRUBIN,TOTAL 0.4 MG/DL (0.2-1.0); BLOOD UREA NITROGEN 24 MG/DL (7-18); CALCIUM LEVEL 9.3 MG/DL (8.8-10.2); CARBON DIOXIDE LEVEL 26 MEQ/L (21-32); CHLORIDE LEVEL 105 MEQ/L (98-107); CK-MB VALUE MASS 3.5 NG/ML (<3.6); CPK CREATINE PHOSPHOKINASE 120 U/L (26-192); CREATININE FOR GFR 1.37 MG/DL (0.55-1.30); FREE T4 1.06 NG/DL (0.76-1.46); GLOMERULAR FILTRATION RATE 38.7 (>32); GLUCOSE, FASTING 98 MG/DL (70-100); MB/CK RELATIVE INDEX 2.92 (< OR =4); POTASSIUM SERUM 4.5 MEQ/L (3.5-5.1); SODIUM LEVEL 138 MEQ/L (136-145); TOTAL PROTEIN 7.2 GM/DL (6.4-8.2); TROPONIN I < 0.02 NG/ML (< 0.10)
--- NOTE | 2019-10-27 17:11 | REPVR ---
PROCEDURE INFORMATION: Exam: US Duplex Left Upper Extremity Veins, Limited Exam date and time: 10/27/2019 5:05 PM Age: 89 years old Clinical indication: Pain; Arm, lower; Left; Prior surgery; Surgery date: 3-7 days post-operative; Surgery type: Carpal tunnel; Additional info: L arm pain R/O dvt TECHNIQUE: Imaging protocol: Real-time Duplex ultrasound of the Left Upper Extremity with 2-D shell scale, color Doppler flow and spectral waveform analysis with image documentation. Limited exam focused on the left upper extremity veins. COMPARISON: No relevant prior studies available. FINDINGS: Left deep veins: Unremarkable. Axillary and brachial veins are patent throughout without thrombus. Normal Doppler waveforms. Normal compressibility and/or augmentation response. Visualized internal jugular and subclavian veins are patent. Left superficial veins: Unremarkable. Visualized cephalic and basilic veins are patent without thrombus. Soft tissues: Unremarkable. IMPRESSION: No evidence of deep vein thrombosis. Electronically signed by: Jayson Busch On 10/27/2019 17:11:00 PM
[2019-10-27 18:13] LABS: CHOLESTEROL LEVEL 169 MG/DL (<200); CHOLESTEROL RISK RATIO 2.139 (<5); HDL CHOLESTEROL 79 MG/DL (>40); LDL CHOLESTEROL 75 MG/DL (<100); NON-HDL-C 90 MG/DL; TRIGLYCERIDES LEVEL 75 MG/DL (<150)
[2019-10-27] MEDS ORDERED: METOPROLOL 5 MG/5 ML VIAL IV PRN (18:30)
[2019-10-27] MEDS ORDERED: hydrALAZINE 20MG/ML 1ML VIAL (J0360 PER 20MG) IV PRN (18:30)
[2019-10-27] MEDS ORDERED: PERCOCET 5MG/325MG TAB PO PRN ×2 (18:30)
[2019-10-27] MEDS ORDERED: PERCOCET 5MG/325MG TAB PO ONE (18:30)
[2019-10-27] MEDS ORDERED: NALOXONE INJ 0.4MG/1ML VIAL (J2310 PER 1MG) IV PRN (18:30)
[2019-10-27] MEDS ORDERED: MORPHINE 4 MG/ML 1ML VIAL/SYRINGE (J2270) IV PRN (18:30)
[2019-10-27] MEDS ORDERED: HM P99TA PO (18:51)
[2019-10-27] MEDS ORDERED: LATA0.0015 OU (18:51)
--- NOTE | 2019-10-27 19:04 | REPVR ---
PROCEDURE INFORMATION: Exam: US Duplex Bilateral Extracranial Arteries Exam date and time: 10/27/2019 6:29 PM Age: 89 years old Clinical indication: Other: CVA TECHNIQUE: Imaging protocol: Real-time Duplex ultrasound scan of the bilateral carotid and vertebral arteries combining shell scale, color Doppler and spectral waveform analysis. Bilateral exam. COMPARISON: CT Head without contrast 10/27/2019 3:48 PM FINDINGS: Right common carotid artery: Peak systolic velocity is 51 cm/s.. No occlusion or stenosis. Waveforms are normal. Right internal carotid artery: Peak systolic velocity is 56 cm/s. No occlusion or stenosis. Waveforms are normal. Right ICA/CCA ratio: 1.1, Within normal limits. Right external carotid artery: Peak systolic velocity is 147 cm/s consistent with mild stenosis.. Right vertebral artery: Unremarkable. Antegrade flow. Left common carotid artery: Peak systolic velocity is 70 cm/s.. No occlusion or stenosis. Waveforms are normal. Left internal carotid artery: Peak systolic velocity is 83 cm/s.. No occlusion or stenosis. Waveforms are normal. Left ICA/CCA ratio: 1.2, Within normal limits. Left external carotid artery: Peak systolic velocity is 118 cm/s. Possible mild stenosis. Left vertebral artery: Unremarkable. Antegrade flow. Limitations: Unusually deep and superior location of carotid bifurcations somewhat limits examination. IMPRESSION: No significant stenosis of the common or internal carotid arteries. Antegrade flow in the vertebral arteries. REFERENCES: SRU CRITERIA. The degree of internal carotid artery stenosis is based on criteria defined by the Society of Radiologists in Ultrasound (SRU). Normal is no stenosis. Mild is less than 50% stenosis. Moderate is 50-69% stenosis. Severe is greater than 69% stenosis to near occlusion. Near occlusion is a markedly narrowed lumen. Total occlusion is no detectable patent lumen. Electronically signed by: Jayson Busch On 10/27/2019 19:04:06 PM
[2019-10-27] MEDS: ONDANSETRON 4MG/2ML VIAL IV SCH (19:47)
[2019-10-27] MEDS ORDERED: GABAPENTIN 300 MG CAP PO ONE (20:00)
[2019-10-27] MEDS ORDERED: PROCHLORPERAZINE 10MG/2ML VIAL (J0780 PER 1) IV PRN (20:30)
[2019-10-27] MEDS ORDERED: ACETAMINOPHEN TAB 650MG DOSE (2X325MG) PO PRN (20:30)
[2019-10-27] MEDS: SIMVASTATIN 40 MG TAB PO SCH (20:31)
[2019-10-27] MEDS ORDERED: NS 1,000 ML IV ONE (21:00)
[2019-10-27] MEDS ORDERED: methocarbamoL 500 MG TAB PO ONE (21:00)
--- NOTE | 2019-10-27 21:18 | IPNPDOC ---
Text Note Date of Service The patient was seen on 10/27/19. NOTE MRI machine down, no note available at this time, but per ED provider patient is well outside 12 hour window, with stroke symptoms occurring ~48-72 hours prior. ED provider had previously reached out to Dr. Saez regarding patient and explained patient's condition, no further acute recommendations given. Changing MRI order to be marked as urgent for tomorrow morning as obtaining this now will not alter patient's clinical course. Patient's blood pressure <160 s/p IV hydralazine, will not give any more antihypertensives, giving 1 L NS bolus and starting IVF at 150 ml/hr. VS,Fishbone, I+O VS, Fishbone, I+O Laboratory Tests 10/27/19 16:12 Vital Signs Date Time Temp Pulse Resp B/P (MAP) Pulse Ox O2 Delivery O2 Flow Rate FiO2 10/27/19 19:02 164/74 (104) 10/27/19 18:46 97.8 83 18 100 Room Air 10/27/19 17:19 2.0 GME ATTESTATION GME ATTESTATION My faculty preceptor for this patient encounter was physically present during the encounter and was fully available. All aspects of the patient interview, examination, medical decision making process, and medical care plan development were reviewed and approved by the faculty preceptor. The faculty preceptor is aware and concurs with the plan as stated in the body of this note and will attest to such by his/her cosignature. PARVIN STEVENS DO Oct 27, 2019 21:18
[2019-10-27] MEDS: NS 1,000 ML IV SCH (22:28)
[2019-10-28] VITALS (11 sets, daily range): BP systolic 90–175; BP diastolic 47–78
[2019-10-28] MEDS: ONDANSETRON 4MG/2ML VIAL IV SCH ×6 (00:08→20:00)
[2019-10-28] MEDS: NS 1,000 ML IV SCH (04:27)
[2019-10-28] MEDS ORDERED: NS 1,000 ML IV ONE ×2 (04:30→11:15)
[2019-10-28 04:49] LABS: HEMATOCRIT 34.1 % (36.0-47.0); HEMOGLOBIN 10.7 g/dl (12.0-15.5); MEAN CORPUSCULAR HEMOGLOBIN 30.9 pg (27.0-33.0); MEAN CORPUSCULAR HGB CONC 31.4 g/dl (32.0-36.5); MEAN CORPUSCULAR VOLUME 98.6 fl (80.0-96.0); PLATELET COUNT, AUTOMATED 199 10^3/uL (150-450); RED BLOOD COUNT 3.46 10^6/uL (4.00-5.40); WHITE BLOOD COUNT 8.9 10^3/uL (4.0-10.0)
[2019-10-28 04:58] LABS: CALCIUM LEVEL 7.9 MG/DL (8.8-10.2); CREATININE FOR GFR 1.25 MG/DL (0.55-1.30); GLOMERULAR FILTRATION RATE 43.1 (>32); POTASSIUM SERUM 3.9 MEQ/L (3.5-5.1)
[2019-10-28] MEDS: LEVOTHYROXINE 75MCG TABLET (0.075MG) PO SCH (06:16)
[2019-10-28] MEDS ORDERED: RIVAROXABAN 15 MG TAB (XARELTO) PO SCH (08:00)
[2019-10-28] MEDS ORDERED: NS 500 ML IV ONE (08:00)
[2019-10-28] MEDS: OMEPRAZOLE 20 MG CAP PO SCH (08:44)
[2019-10-28] MEDS ORDERED: LOSARTAN 50MG TABLET PO SCH (09:00)
--- NOTE | 2019-10-28 11:05 | REPVR ---
PROCEDURE INFORMATION: Exam: MR Head Without Contrast Exam date and time: 10/28/2019 10:24 AM Age: 89 years old Clinical indication: Altered mental status/memory loss; Patient HX: Confusion, weakness, S/P carpal tunnel SX; Additional info: CVA TECHNIQUE: Imaging protocol: MR of the head without contrast. COMPARISON: CT Head without contrast 10/27/2019 3:48 PM FINDINGS: Brain: There is mild patchy increased T2 signal intensity within the bilateral cerebral periventricular white matter, consistent with chronic microvascular ischemic changes. There are few small focal areas of chronic ischemia in bilateral frontal, parietal and periatrial white matter. There is no abnormal diffusion weighted signal intensity to suggest an acute ischemic event. On gradient echo imaging, no susceptibility changes are seen to represent parenchymal calcification or degraded blood products. There is mild diffuse cerebral atrophy present, consistent with this patient's age. Ventricles: The ventricular system is not dilated and is appropriate for the patient's age. Bones/joints: Unremarkable. Sinuses: Mild mucosal thickening is seen in the paranasal sinuses. Mastoid air cells: Normal as visualized. No mastoid effusion. Orbits: Unremarkable. Soft tissues: Unremarkable. IMPRESSION: 1. No acute infarction, masses or hemorrhage is seen. No acute intracranial abnormality is identified. 2. Diffuse age-related cerebral atrophy and mild chronic microvascular white matter ischemic changes, without evidence of an acute intracranial abnormality. 3. There has been no adverse interval change since the previous study. Electronically signed by: rAtis Motta On 10/28/2019 11:05:37 AM
--- NOTE | 2019-10-28 11:08 | REPVR ---
PROCEDURE INFORMATION: Exam: MR Angiogram Head Without Contrast, Arteries Exam date and time: 10/28/2019 10:24 AM Age: 89 years old Clinical indication: Cognitive deficit; Communication deficit; Patient HX: Confusion, weakness, S/P carpal tunnel SX; Additional info: CVA TECHNIQUE: Imaging protocol: MR angiogram head without contrast. Exam focused on the arteries. 3D rendering (Not supervised by radiologist): MIP and/or 3D reconstructed images were created by the technologist. COMPARISON: CT Head without contrast 10/27/2019 3:48 PM FINDINGS: ANTERIOR CIRCULATION: Right internal carotid artery: Intracranial segment is patent with no significant stenosis. No aneurysm. Right middle cerebral artery: No occlusion or significant stenosis. No aneurysm. Right anterior cerebral artery: No occlusion or significant stenosis. No aneurysm. Left internal carotid artery: Intracranial segment is patent with no significant stenosis. No aneurysm. Left middle cerebral artery: No occlusion or significant stenosis. No aneurysm. Left anterior cerebral artery: No occlusion or significant stenosis. No aneurysm. POSTERIOR CIRCULATION: Right vertebral artery: No occlusion or significant stenosis. No aneurysm. Left vertebral artery: No occlusion or significant stenosis. No aneurysm. Basilar artery: No occlusion or significant stenosis. No aneurysm. Right posterior cerebral artery: No occlusion or significant stenosis. No aneurysm. Left posterior cerebral artery: No occlusion or significant stenosis. No aneurysm. IMPRESSION: No stenosis.No occlusion. No aneurysm. Electronically signed by: Artis Motta On 10/28/2019 11:08:05 AM
--- NOTE | 2019-10-28 12:06 | ECGEPIP ---
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
[2019-10-28] MEDS: ceFAZolin SOD 1 GM in D5W MINI-BAG PLUS 50 ML IV SCH ×2 (13:06→21:22)
[2019-10-28] MEDS: traMADol 50 MG TAB PO PRN ×2 (14:31→21:38)
[2019-10-28] MEDS: ACETAMINOPHEN 500 MG TAB PO SCH ×2 (16:18→21:23)
[2019-10-28] MEDS: RIVAROXABAN 15 MG TAB (XARELTO) PO SCH (18:20)
[2019-10-28] MEDS: SIMVASTATIN 40 MG TAB PO SCH (21:23)
[2019-10-29] MEDS: ONDANSETRON 4MG/2ML VIAL IV SCH ×7 (04:00→23:55)
[2019-10-29 04:29] LABS: HEMATOCRIT 35.1 % (36.0-47.0); MEAN CORPUSCULAR HGB CONC 31.3 g/dl (32.0-36.5); MEAN CORPUSCULAR VOLUME 98.9 fl (80.0-96.0); PLATELET COUNT, AUTOMATED 190 10^3/uL (150-450); RED BLOOD COUNT 3.55 10^6/uL (4.00-5.40); WHITE BLOOD COUNT 9.2 10^3/uL (4.0-10.0)
[2019-10-29 04:52] LABS: CALCIUM LEVEL 8.6 MG/DL (8.8-10.2); CREATININE FOR GFR 1.26 MG/DL (0.55-1.30); GLOMERULAR FILTRATION RATE 42.7 (>32); POTASSIUM SERUM 4.3 MEQ/L (3.5-5.1)
[2019-10-29] MEDS: ceFAZolin SOD 1 GM in D5W MINI-BAG PLUS 50 ML IV SCH ×3 (05:01→20:14)
[2019-10-29] MEDS: LEVOTHYROXINE 75MCG TABLET (0.075MG) PO SCH (05:01)
[2019-10-29] MEDS: traMADol 50 MG TAB PO PRN ×2 (05:02→14:34)
[2019-10-29 06:11] VITALS: BP 158/70
[2019-10-29 08:00] VITALS: BP 142/66
[2019-10-29] MEDS: ACETAMINOPHEN 500 MG TAB PO SCH ×3 (08:15→20:09)
[2019-10-29] MEDS: OMEPRAZOLE 20 MG CAP PO SCH (08:15)
[2019-10-29] MEDS: LOSARTAN 50MG TABLET PO SCH (08:44)
[2019-10-29] MEDS ORDERED: KETOROLAC 30 MG/ML 1ML VIAL IV ONE (09:00)
[2019-10-29] MEDS ORDERED: traMADol 50 MG TAB PO ONE (09:00)
[2019-10-29 14:00] VITALS: BP 128/58
[2019-10-29] MEDS ORDERED: BISACODYL 5 MG TAB PO PRN (16:15)
[2019-10-29] MEDS ORDERED: SENOKOT S TAB PO PRN (16:15)
[2019-10-29] MEDS ORDERED: FLEET ENEMA PR PRN (16:15)
[2019-10-29 16:30] VITALS: BP 126/67
[2019-10-29] MEDS ORDERED: MOM 30ML SUSPENSION UDC PO ONE (16:45)
[2019-10-29] MEDS: RIVAROXABAN 15 MG TAB (XARELTO) PO SCH (18:28)
[2019-10-29] MEDS: SIMVASTATIN 40 MG TAB PO SCH (20:09)
[2019-10-29] MEDS ORDERED: MOM 30ML SUSPENSION UDC PO PRN (21:00)
[2019-10-29 22:00] VITALS: BP 127/67
[2019-10-30] MEDS: ONDANSETRON 4MG/2ML VIAL IV SCH ×4 (04:00→15:15)
[2019-10-30] MEDS: ceFAZolin SOD 1 GM in D5W MINI-BAG PLUS 50 ML IV SCH ×2 (04:51→12:01)
[2019-10-30] MEDS: LEVOTHYROXINE 75MCG TABLET (0.075MG) PO SCH (05:31)
[2019-10-30 06:03] LABS: HEMATOCRIT 35.9 % (36.0-47.0); HEMOGLOBIN 11.3 g/dl (12.0-15.5); MEAN CORPUSCULAR HEMOGLOBIN 31.3 pg (27.0-33.0); MEAN CORPUSCULAR HGB CONC 31.5 g/dl (32.0-36.5); MEAN CORPUSCULAR VOLUME 99.4 fl (80.0-96.0); PLATELET COUNT, AUTOMATED 216 10^3/uL (150-450); RED BLOOD COUNT 3.61 10^6/uL (4.00-5.40); WHITE BLOOD COUNT 9.2 10^3/uL (4.0-10.0)
[2019-10-30 06:14] LABS: CALCIUM LEVEL 8.5 MG/DL (8.8-10.2); CREATININE FOR GFR 1.68 MG/DL (0.55-1.30); GLOMERULAR FILTRATION RATE 30.6 (>32); POTASSIUM SERUM 4.7 MEQ/L (3.5-5.1)
[2019-10-30] MEDS: OMEPRAZOLE 20 MG CAP PO SCH (08:02)
[2019-10-30 08:04] VITALS: BP 156/66
[2019-10-30] MEDS: LOSARTAN 50MG TABLET PO SCH (08:04)
[2019-10-30] MEDS: ACETAMINOPHEN 500 MG TAB PO SCH ×2 (08:04→15:15)
[2019-10-30] MEDS: traMADol 50 MG TAB PO PRN (12:02)
[2019-10-30 14:00] VITALS: BP 163/60
[2019-10-30] MEDS ORDERED: CEFA1INJ4 IV (15:10)
[2019-10-30] MEDS ORDERED: ACET-683 PO (15:13)
[2019-10-30] MEDS ORDERED: TRAM50TA2 PO (15:13)
[2019-10-30] MEDS ORDERED: SENN-52 PO (15:13)
--- NOTE | 2019-10-30 15:18 | HPE ---
DATE OF ADMISSION: 10/27/2019 CHIEF COMPLAINT: Left carpal tunnel and left shoulder pain with some numbness, intractable despite Tylenol #3, dizziness. HISTORY OF PRESENT ILLNESS: This is an 89-year-old female with a history of multiple pulmonary emboli (PE) and deep venous thrombosis (DVT), on chronic Xarelto, arthritis, hypertension, hypothyroidism, hyperlipidemia with carpal tunnel syndrome. Had her Xarelto held for 3 days prior to surgery and had a carpal tunnel surgery on the left hand on Wednesday. Patient was resumed back on her Xarelto and had a followup appointment on November 06 with orthopedic surgery. She had noted worsening pain and swelling on her left wrist along with pain radiating up to her shoulder without fever, chills, or drainage. Patient has noticed also a change in her gait. She usually does to use a walker or cane but felt like she was going to pass out and felt sick to her stomach, prompting her to come to the emergency room. Despite four tablets of Tylenol #3, she woke up in the morning at 4 today and had to take one more tablet for severe pain. She complains of a right-sided headache, which she does have at times, but this was worse than before. Patient felt like she was going to lose her balance and has been living on the first floor of her house and has not been going up the stairs. In the emergency room (ER) she was found to have hypertensive with systolic pressure of 240/94. CT of the head shows an acute left superior cerebellar infarct. Hospitalist was called to admit. Dr. Saez has been consulted from neurology. She is continued on simvastatin. Systolic pressure to be kept between 160-180. She received two doses of intravenous (IV) labetalol, total of 40 mg, in the ER with resultant decrease in blood pressure to 160 at the bedside, 187/82. Patient denies any history of atrial fibrillation in the past. MEDICAL HISTORY: 1. Multiple PEs and DVTs. 2. Arthritis. 3. Hypertension. 4. Bilateral carpal tunnel syndrome. 5. Hypothyroidism. 6. Hyperlipidemia. PAST SURGICAL HISTORY: 1. Right carpal tunnel surgery. 2. Bilateral tubal ligation (BTL). 3. Appendectomy. 4. Cholecystectomy. 5. Hysterectomy. FAMILY HISTORY: Coronary artery disease, DVT/PE in a sister, and a cancer. SOCIAL HISTORY: Never smoked, drank alcohol, or recreational drug use. She is retired. ALLERGIES: COLCHICINE and DOXYCYCLINE. HOME MEDICATIONS: - Zocor 40 mg daily - losartan 100 mg daily - Tylenol #3 one tablet as needed - Synthroid 75 mcg every night - Prilosec 40 daily - ranitidine 150 mg daily - Xarelto 15 mg daily - simvastatin 40 mg every night - sodium chloride eyedrops both eyes daily - Combigan one drop both eyes twice a day - potassium 99 mg by mouth every night REVIEW OF SYSTEMS: Per history of present illness (HPI). A 12- point system otherwise negative. PHYSICAL EXAMINATION: Temperature 99.7, pulse 95, sinus, respiratory rate 16, blood pressure 240/94, 94% on 1 liter nasal cannula. GENERAL: Patient is awake, alert, oriented, answering questions appropriately. Speech is fluent. Face is symmetric. Tongue is midline. No nystagmus, horizontal or vertical. No jugular venous distention (JVD) or thyromegaly. No carotid bruits. HEART: S1, S2, sinus rhythm. No murmur, rubs, or gallops. LUNGS: Clear to auscultation. No wheezing, rales, or rhonchi. ABDOMEN: Soft, nontender, nondistended. Positive bowel sounds. EXTREMITIES: Patient has trace edema, bilateral lower extremities. She is status post carpal tunnel surgery on the left with sutures noted. Clean and dry without any purulent drainage. NEUROLOGIC: Motor function is 5/5, left upper extremity, limited by severe pain. Tongue is midline. Pupils round and reactive. No nystagmus. No pronator drift. Patient had negative dysmetria on satcar-eb-mhay testing. EKG: Sinus rhythm, ventricular rate of 97. Moderate ST depression. UT interval 180, QRS 85, QT 332, QTC 387. CT of the head: Acute left superior cerebellar infarct. Ultrasound of the left upper extremity: No signs of DVT. ASSESSMENT AND PLAN: An 89-year-old female with a history of deep venous thrombosis (DVT)/pulmonary emboli (PE), on chronic Xarelto, bilateral carpal tunnel. Had a left carpal tunnel surgery on Wednesday after Xarelto had been held. Subsequently resumed. She noted severe pain of the left wrist, increasing gait abnormality at home. Found to have an acute left superior cerebellar cerebrovascular accident (CVA) in the hospital, on hypertensive urgency, presenting pressure of 240/94. CURRENT ISSUES: 1. Acute left superior cerebellar CVA. 2. Hypertensive urgency. 3. Intractable pain status post left carpal tunnel repair. 4. Hypothyroidism. 5. History of DVT/PE. 6. Dyslipidemia. 7. Reflux. PLAN: Patient will be admitted to the progressive care unit (PCU). Telemetry monitoring. Regarding CVA, neurologic checks every 4 hours. Keep blood pressure 160-180 for the first 24 hours. Neurology has been consulted. She is maintained on simvastatin and Xarelto for now. Defer to neurology if patient should also be on aspirin. To prevent gastrointestinal (GI) bleed, she is also taking Prilosec. Due to recent CVA, echocardiogram with bubble study to rule out patent foramen ovale (PFO). Hypercoagulable state will be sent. Dr. Alvarez, orthopedic surgery, has been consulted regarding the intractable pain status post left carpal tunnel repair. Obtain MRI/MRA of the brain, carotid Dopplers. Await further recommendations from neurology. Continue on all other home medications. SUKHWINDER
--- NOTE | 2019-10-30 15:20 | IPN ---
DATE: 10/28/2019 Patient seen and examined at the bedside. Chart has been reviewed. This morning, patient was noted to have low blood pressure. Received intravenous (IV) fluids overnight due to acute cerebrovascular accident (CVA) in order to maintain blood pressure between 160-180 over the next 24 hours. Patient has been resumed back on her home dose of Xarelto. Still awaiting MRI of the brain as well as echocardiogram, MRA of the brain. Carotid Dopplers are negative. No new neurological symptoms. Patient's pain is 3/10 currently with Percocet one to two tablets and morphine IV for breakthrough pain. PHYSICAL EXAMINATION: VITAL SIGNS: Temperature 98.1, pulse 65, respiratory rate 19, blood pressure 121/58, 96% on 1 liter nasal cannula. GENERAL: Awake, alert, oriented to person, place, and time, answering questions appropriately. Face is symmetric. Tongue is midline. No expressive aphasia. Patient has fluent speech. Tongue is midline. No jugular venous distention (JVD) or thyromegaly. LUNGS: Clear to auscultation. No wheezing, rales, or rhonchi. HEART: S1, S2, sinus rhythm. ABDOMEN: Soft, nontender, nondistended. Positive bowel sounds. EXTREMITIES: No cyanosis, clubbing, or pitting edema. Left hand status post carpal tunnel surgery. Some tenderness. No erythema or swelling. Telemetry unremarkable. Sinus rhythm overnight. MRI of the brain: Acute left superior cerebellar CVA. Vascular Doppler of the carotids: No significant carotid stenosis. Chest x-ray 10/27/2019: No acute findings. ASSESSMENT AND PLAN: An 89-year-old female with a history of pulmonary embolus (PE)/deep venous thrombosis (DVT), on chronic Xarelto, held due to left carpal tunnel surgery for 3 days. Resume postoperatively. Developed acute onset of left hand pain, radiating to the shoulder with some numbness. Evaluated with CT of the head, which showed acute left superior cerebellar CVA, admitted to the medical service. Initially was hypertensive with systolic pressure of 240/94. Given labetalol, a total of 40 mg, by the emergency room intravenously with subsequent hypotension with systolic pressure of 90/49 at 1 a. m. Overnight, despite hypotension and IV fluid boluses, patient has had no new neurological symptoms. IMPRESSION: 1. Acute left superior cerebellar CVA. 2. Hypertensive urgency, resolved. 3. Left carpal tunnel surgery with intractable pain. 4. History of DVT/PE in the past with hypercoagulable state. PLAN: Patient is continued on IV fluid boluses to keep cerebral perfusion in light of acute CVA. Neurology has been consulted. Patient has been resumed on her home dose of Xarelto as well as simvastatin. Patient is awaiting 2- dimensional echocardiogram, MRI, MRA of the brain. Continue with fluid boluses to increase cerebral perfusion. Compression stockings. PT/OT and acute rehabilitation evaluation. Dr. Alvarez has been consulted regarding the left carpal tunnel intractable pain. Ultrasound shows no DVT of the left arm. MTDD
--- NOTE | 2019-10-30 15:22 | IPN ---
DATE: 10/29/2019 SUBJECTIVE: The patient has seen at the [facility], chart has been reviewed. Patient complains of 5/10 pain at the left wrist, unable to flex and extend due to severe pain and inflammation. No fever or chills. She is on IV Cefazolin. No neurologic deficits. Per Neurology, MRI of the brain is negative. No CVA despite finding of acute left superior cerebellar CVA on CT of the head. No other issues per nursing overnight. PHYSICAL EXAMINATION: VITAL SIGNS: Temperature 98.6, pulse 77, respiratory 20, blood pressure is 158/70, 95% on 2 liters nasal cannula. GENERAL: Awake, alert and oriented x3, answering questions appropriately. HEENT: Face is symmetric. Tongue is midline. No expressive aphasia. No facial drooping. No tracheal deviation. NECK: No thyromegaly. LUNGS: Clear to auscultation. No wheezes, rales or rhonchi. HEART: S1 and S2. ABDOMEN: Obese, soft, nontender and nondistended. EXTREMITIES: No pitting edema. Left wrist is swollen with limited extension and flexion due to severe pain. LABORATORY DATA: White count 9.3, hemoglobin 11, hematocrit 35, platelet count is 190,000, sodium 137, potassium 4.3, chloride 108, bicarbonate 25, BUN 20, creatinine 1.26, glucose of 94. ASSESSMENT AND PLAN: This is an 89-year-old female with left carpal tunnel surgery who presented with left wrist pain radiating up to the shoulder, evaluated with a CT of the head to rule out acute CVA, was found to have left cerebellar CVA. Neurology was consulted. Patient was admitted to the ICU for blood pressure control. MRI of the brain, however shows no acute CVA. Patient was continued on her home medications. 1. Left wrist postop infection status post carpal tunnel surgery with cellulitis. 2. 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 3. Hypertensive urgency, resolved. 4. Hyperlipidemia, on chronic Zocor. 5. Hypothyroidism, on Synthroid. PLAN: Patient has no acute CVA on MRI of the brain, may be transferred to Med/Surg floor, PT/OT and ARU consult per Dr. Alvarez. Continue with IV antibiotics and pain control. Patient has not had much pain control on Tramadol 50 and Tylenol 1 gram t.i.d., therefore the patient will be given one dose of Toradol and Tramadol 100 mg q. 6 as needed for severe pain, monitor patients renal function. Continue on simvastatin, levothyroxine, Prilosec, antiemetics, activity as tolerated. May transfer to Med/Surg floor. Await ARU evaluation. MTDD
--- NOTE | 2019-10-30 15:24 | IPN ---
DATE: 10/30/2019 SUBJECTIVE: No fever or chills. She complains of 10/10 pain at the left wrist. No induration. Patient has no fluctuance, she is able to move it, abduct and adduct, flexion and extension still very difficult to do. PHYSICAL EXAMINATION: VITAL SIGNS: Temperature 98.7, pulse 72, respiratory rate 18, blood pressure is 127/67, 92% on room air. GENERAL: Awake, alert and oriented to person, place and time, answering questions appropriately. HEENT: Face is symmetric. Tongue is midline. Speech is fluent. LUNGS: Clear to auscultation. No wheezing, rales or rhonchi. HEART: S1 and S2. Sinus rhythm. ABDOMEN: Soft, nontender and nondistended. Positive bowel sounds. EXTREMITIES: Left lower extremity is status post carpal tunnel surgery. Limited range of motion. Erythema is improved. ABDOMEN: Soft, nontender and nondistended. Positive bowel sounds. EXTREMITIES: No cyanosis, clubbing or pitting edema. ASSESSMENT AND PLAN: This is an 89-year-old female with a history of DVT on chronic Eliquis, had a left carpal tunnel surgery done. Eliquis had been held, presented with numbness of the left arm. Erythema, tenderness and edema, found to have cellulitis with no signs of DVT. Patient has been restarted back on her home dose of Eliquis due to complaint of numbness. CT of the head was done which showed acute left superior cerebellar infarct. MRI was negative per Dr. Saez. Patient did not have an acute CVA. CURRENT ISSUES: 1. Left wrist cellulitis, postop infection status post left wrist carpal tunnel surgery. 2. History of DVT. 3. Hypertension. 4. History of gout. 5. History of arthritis. PLAN: Patient is resumed back on her home dose of Eliquis, pain being controlled with Tylenol and Tramadol, back on Xarelto for DVT. Resume back on her home dose of Synthroid and simvastatin. MTDD
--- NOTE | 2019-10-30 15:27 | CR ---
DATE OF CONSULTATION: 10/28/2019 CHIEF COMPLAINT: Left wrist pain post carpal tunnel release, HISTORY OF PRESENT ILLNESS: This 89-year-old female was seen today for left wrist pain following carpal release approximately three or four days ago. I believe this was performed by Dr. Osuna. The patient has been admitted to the hospital in the intensive care unit for hypertensive urgency. I was asked to assess her for pain in her left wrist. For full past medical, medications, surgical and social history, please see the hospitalists notes. PHYSICAL EXAMINATION: 89-year-old female. She is breathing comfortable, 96% on 1 liter nasal cannula. Most recent temperature 98.1. Inspection of her left upper extremity reveals small open carpal tunnel incision in her left palm overlying the transverse carpal ligament. It appears normal. There are sutures in place. She has mild swelling in the dorsum of her hands and mild warmth there, but no obvious redness or drainage. There is some mild swelling in her fingers. Compartments are soft. Diminished sensation in the ulnar nerve distribution, but normal in the right hand and the radial ulnar nerves. The patient can wiggle her fingers. There is no pain with passive stretch. No pain at the elbow, forearm or fingers. ASSESSMENT AND PLAN: This 89-year-old female has some mild swelling and pain following carpal tunnel release. Although she does not have any redness in her hands, there is some mild warmth to the dorsum of her hands. This can be very early cellulitis, although certainly the swelling and the warmth could be simply from recent surgery. I think we should keep a close eye on this and I will follow up in the next one to two days to make sure that there is no spreading of redness or warmth in her upper extremity and we will have an overall low clinical suspicion to start antibiotics given her advanced age and medical co- morbidities and presence in the intensive care unit. I will see her tomorrow morning to see if this is stable or progressing. For now, I would not recommend starting antibiotics. However, I would recommend the hospitalist to follow her inflammatory markers with white blood cell count, CRP and ESR. SUKHWINDER
--- NOTE | 2019-10-30 15:29 | IPN ---
DATE: 10/29/2019 CHIEF COMPLAINT: Left hand pain and swelling. HISTORY OF PRESENT ILLNESS: 89-year-old female seen yesterday in the intensive care unit (ICU). She was a few days out from carpal tunnel release. She continues to have pain and swelling to her left hand. PHYSICAL EXAMINATION: This is a well-appearing female. She has still some warmth in the dorsum of her hand, mild swelling throughout the hand. Carpal tunnel incision appears normal, no drainage. Some mild difficulty making a fist. Temperature 98.6. White blood cell count 9.2, ESR 48. ASSESSMENT AND PLAN: This is an 89-year-old female. We talked to Dr. Cruz today. The patient has been started on Cefazolin for possible cellulitis of her left hand. I agree with this plan and we will continue to monitor her clinical response as well as inflammatory markers. SUKHWINDER
[2019-10-31] MEDS ORDERED: OMEP-218 PO (05:11)
[2019-10-31] MEDS ORDERED: TRAM50TA2 PO (05:11)
[2019-10-31] MEDS ORDERED: LEVO75TA4 PO (05:11)
[2019-10-31] MEDS ORDERED: SIMV40TA20 PO ×2 (05:11→06:30)
[2019-10-31] MEDS ORDERED: AMLO1TAB24 PO (05:11)
[2019-10-31] MEDS ORDERED: XARE15TA PO ×2 (05:11→06:30)
[2019-10-31] MEDS ORDERED: MECL12.589 PO (05:11)
[2019-10-31] MEDS ORDERED: ACET1TAB55 PO (05:11)
[2019-10-31] MEDS ORDERED: DOCU100C16 PO (05:11)
[2019-10-31] MEDS ORDERED: RISATAB3 PO (05:11)
[2019-10-31] MEDS ORDERED: SYNT75TA PO (06:30)
[2019-10-31] MEDS ORDERED: XALA0.007 OU (06:30)
[2019-10-31] MEDS ORDERED: LOSA100T50 PO (06:30)
[2019-10-31] MEDS ORDERED: OMEP20TA18 PO (06:30)
--- NOTE | 2019-10-31 06:49 | ECHO ---
DATE OF PROCEDURE: 10/27/2019 REFERRING PHYSICIAN: Dr. Cruz INDICATION: Cerebrovascular accident. MEASUREMENTS: LA 3.5 cm IVS 1.2 cm LV 3.3 cm LVPW 1.0 cm Aorta 2.9 IVC 1.7 cm Mitral E wave velocity 112 Mitral A wave 116 E prime septal 6.3 E prime lateral 5.8 FINDINGS: This study is of acceptable technique quality. Patient is in sinus rhythm. Left ventricle is normal size. Moderate left ventricular hypertrophy is present. Overall likely hyperdynamic LV systolic function with LVEF of approximately 70%. Based on limitation of the study, subtle wall motion abnormalities could have been missed. The right ventricle was relatively poorly visualized. It is not enlarged and appears to be normally contractile. Both atria appeared normal. Aortic valve is tricuspid. It is sclerotic, but mobility of the leaflets is preserved. The same applies for the mitral valve with mitral annular calcification and preserved mobility of the mitral leaflets. Tricuspid valve appears normal. Pulmonic valve was not well seen. No pericardial effusion was noted. Inferior vena cava is normal size and appropriately collapses with inspiration indicative of likely normal central venous pressure. Aortic root and abdominal aorta appear normal. Aortic arch was not well seen. Doppler interrogation of the aortic valve revealed no significant stenosis and trace insufficiency. There is also trace mitral insufficiency. Approximately moderate tricuspid insufficiency is seen. Calculated pulmonary artery pressure is around 50 mmHg corresponding to moderate pulmonary hypertension. CONCLUSIONS: 1. Study is of acceptable technical quality, patient is in sinus rhythm. 2. Normal LV size with mild LVH and preserved LV systolic function, estimated LVEF approximately 70%. Grade 1 diastolic dysfunction. 3. Aortic sclerosis with no stenosis and trace insufficiency. 4. Trace mitral insufficiency. 5. Moderate tricuspid insufficiency. 6. Likely normal central venous pressure and approximately moderate pulmonary hypertension. COMMENTS: No obvious explanation for CVA. MTDD
[2019-10-31 10:20] LABS: DRVV SCREEN 55.6 SEC
[2019-10-31 10:36] LABS: PTT LUPUS TYPE ANTICOAG SCREEN 1.3 (0-1.2)
[2019-10-31 10:47] LABS: DRVV CONFIRM 49.2 SEC; LUPUS CONFIRM RATIO 1.2
[2019-10-31 10:48] LABS: NORMALIZED RATIO 1.08 (0.00-1.20)
[2019-11-02 19:07] LABS: ANTINUCLEAR ANTIBODIES DIRECT Negative (Negative)
--- NOTE | 2019-11-08 12:03 | CR ---
DATE OF CONSULTATION: 10/28/2019 REFERRING PHYSICIAN: Karma Cruz MD REASON FOR CONSULTATION: Left arm pain, numbness, tingling. HISTORY OF PRESENT ILLNESS: Mi Walker is an 89-year-old woman who was admitted at [facility] due to left arm pain, numbness, swelling which started after her left carpal tunnel surgery on 10/24/2019. Patient had right carpal tunnel surgery in August 2019. Patient saw orthopaedics for followup after her left carpal tunnel surgery and they were concerned whether she had developed deep venous thrombosis (DVT) of her left arm and she was sent to [facility]. Patient had not taken Xarelto for 2 days prior to her left carpal tunnel surgery and then restarted it. She denied any problems with her left leg or right side of the body, face, or speech. She came to [facility] and CT scan of head was reported superior left cerebellar ischemic stroke and patient was admitted for further evaluation. DIAGNOSTIC STUDIES: CT scan of head was reported as superior left cerebellar stroke which was unremarkable on my review. MRI scan of brain showed small vessel ischemic disease of brain, atrophy, but no acute disease. MRA brain was unremarkable. Carotid ultrasound was unremarkable. LDL was 75 with HDL 79, total cholesterol 169. Basic metabolic profile was normal. Hemoglobin was 10.7 and platelet count 199. PAST MEDICAL HISTORY: Arthritis, hypertension, bilateral carpal tunnel syndrome status post surgery, hypothyroidism, dyslipidemia, DVT with pulmonary embolism, appendectomy, cholecystectomy, hysterectomy. FAMILY HISTORY: Significant for coronary artery disease, cancer. SOCIAL HISTORY: She denies smoking, alcohol, or illicit drugs. ALLERGIES: COLCHICINE, DOXYCYCLINE. HOME MEDICATIONS: - valsartan/hydrochlorothiazide 80/12.5 mg by mouth daily - Celebrex 100 mg by mouth daily - Estradiol 2 mg by mouth daily - levothyroxine 75 mcg by mouth daily - potassium 99 mg by mouth daily - simvastatin 40 mg by mouth daily PHYSICAL EXAMINATION: Temperature 98.1, pulse 80, respiratory rate 18, blood pressure 125/58, 96% saturation on one liter nasal cannula oxygen. Her blood pressure upon arrival was 240/94 which decreased to 90/49 overnight and increased to 121/58 early this morning. Heart: Regular rate and rhythm. Lungs: Clear to auscultation. Abdomen: Soft, nontender, nondistended. No pedal edema. No musculoskeletal abnormalities except her left hand fingers are swollen, hard, and have red discoloration. Patient is awake, alert, oriented to place, person, and time. Normal speech, comprehension, and repetition. Extraocular muscles are intact. No facial weakness. Tongue and uvula are midline. 5/5 strength in all four extremities except left hand where she has severe pain and has trouble closing her left hand fingers. She has difficulty actively and passively bending and extending her left wrist. This is due to pain. Deep tendon reflexes are 1+ throughout. She has decreased cold, pinprick sensation in her hands and feet. Gait is mildly unsteady. There is no dysmetria. ASSESSMENT: 1. Cellulitis and postoperative pain in left hand with numbness, tingling, swelling, redness, and increased temperature. 2. Small vessel ischemic disease of brain and cerebral atrophy without acute disease. PLAN: 1. Patient likely will benefit from intravenous antibiotics for her cellulitis. I have communicated that to Dr. Karma Cruz. 2. Keep blood pressure below 140/90. 3. Continue Xarelto 15 mg by mouth daily and Zocor 20 mg by mouth daily. MTDD
--- NOTE | 2019-11-13 11:48 | DS ---
DATE OF ADMISSION: 10/27/2019 DATE OF DISCHARGE: 10/30/2019 Patient is discharged to acute rehab unit. 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 Dr. Alvarez, orthopedic surgery 2. Dr. Saez, neurologist DISCHARGE DIAGNOSES: 1. Left wrist cellulitis, status post left wrist carpal tunnel surgery. 2. History of deep vein thrombosis (DVT). 3. Hypertension. 4. Chronic diastolic heart failure. 5. History of gout. 6. History of arthritis. 7. Hypothyroidism. 8. Hypercholesterolemia. DISCHARGE MEDICATIONS: - Cefazolin 1 gram IV every 8 hourly - Acetaminophen 1 gram three times a day - Senokot two tabs twice a day as needed for constipation - Tramadol 100 mg every 6 hours as needed for pain - Combigan 1 drop both eyes twice a day - Latanoprost one drop both eyes nightly - Synthroid 75 mcg daily - Omeprazole 20 daily - Potassium 99 mg daily - Xarelto 15 mg nightly - Simvastatin 40 mg nightly HOSPITAL COURSE: This is an 89-year-old female who presented to the emergency room with complaints of dizziness, intractable pain and soreness, numbness of the left arm after left carpal tunnel surgery. Despite taking Tylenol #3, had intractable pain, swelling and redness. In the ER, she was found to have cellulitis of the left arm. Ultrasound was negative for a DVT. The patient had been resumed back on her home dose of Xarelto. Due to complaints of numbness, CT of the head was performed which showed an acute left superior cerebellar infarct. The patient, however, had no other neurological deficit. She initially had uncontrolled hypertension, 187/82, and due to acute CVA noted on the CT, patient was admitted to ICU for blood pressure monitoring; keep pressure 160-180 for the first 24 hours. However, MRI of the brain was negative and, per Dr. Saez, patient did not have a CVA and patient's blood pressure was decreased back to normal; resumed on her home dose of losartan. MRI of the brain shows no acute infarct, no acute intracranial pathology. MRA of the brain: No stenosis, occlusion or aneurysm. The patient was seen by Dr. Alvarez, was started on IV cefazolin for postop cellulitis after left wrist carpal tunnel surgery. She had 10/10 pain alleviated by Tylenol 1 gram three times a day and tramadol 100 mg every 6 hours with no signs of sedation. She had episodes of constipation which was treated with Senokot and milk of magnesia. Patient's losartan was held due to acute kidney injury. In light of acute kidney injury, patient's tramadol should be monitored and repeat BMP should be done in the morning. She was continued on her home dose of Synthroid, Prilosec, potassium, Xarelto, simvastatin and eyedrops. Patient did not pass a home safety evaluation and subsequently discharged to rehab; monitor her renal function and hold losartan until renal function returns back to baseline. PHYSICAL EXAMINATION ON DISCHARGE: Please see 10/30/2019 progress note. LABORATORY DATA ON DISCHARGE: White count 9.2, hemoglobin 11, hematocrit 35, platelet count 216. Sodium 137, potassium 4.7, chloride 107, bicarb 24, BUN 25, creatinine 1.68, glucose of 84. IMAGING STUDIES: - MRI of the brain: No acute CVA. - MRA of the brain: No aneurysm, occlusion. - Venous Doppler, left upper extremity: Negative. - Carotid Dopplers: No significant stenosis of common or internal carotid arteries. - Chest x-ray: No acute cardiopulmonary process. - CT of the head: Acute left superior cerebellar CVA. - Ultrasound of left upper extremity: No DVT. TIME SPEND ON DISCHARGE: 30 minutes. MTDD
== END 2019-10-30 15:15 | DRG 920 ==
LOC: M ED 15:07 → M ED INP 17:34 → ENRESERV 18:33 → M ICU 19:18 → M MS5PR 10-29 16:38
PROVIDERS: ADMIT General Practice; ATTEND General Practice
DX: L76.82 Other postprocedural complications of skin and subcutaneous tissue (principal); L03.114 Cellulitis of left upper limb; I10 Essential (primary) hypertension; M19.90 Unspecified osteoarthritis, unspecified site; E03.9 Hypothyroidism, unspecified; E78.5 Hyperlipidemia, unspecified; Z86.718 Personal history of other venous thrombosis and embolism; Z86.711 Personal history of pulmonary embolism; Z79.01 Long term (current) use of anticoagulants; I16.0 Hypertensive urgency

== ENCOUNTER 2019-10-30 11:28 | Inpatient (IN) | payer MEDICARE, OTHER ==
[~2019-10-30] VITALS: Ht 152.4 cm; Wt 68.3 kg
[~2019-10-30 11:28] MED LIST changes: +ACET1TAB16 PO; +HM P99TA PO; +LATA0.0015 OU; +LOSA100T50 PO; +OMEP-218 PO
--- NOTE | 2019-10-30 13:38 | HPEPDOC ---
Political Geographer Note DATE OF ADMISSION: 10-30-19 DATE OF SERVICE: 11-01-2019- patient had an interrupted from approximately 10-31-19 6am until 11-01-19 12 pm for HTN urgency and was not able to be evaluated by race and sports book writer or therapists until return to unit. TIME OF ADMISSION: Please see above SOURCE OF ADMISSION INFORMATION: [facility] record and patient CHIEF COMPLAINT: stroke HISTORY OF PRESENT ILLNESS: 89F pmh OA, HTN, HLD, hypothyroidism, RLE DVTs with PEs presented to [facility] ED on 10-27-19 with new onset confusion and difficulty communicating and stroke work-up was initiated. CTH showed, Acute left superior cerebellar infarct and she was given ant mimetics for nausea. She was found to be outside of the window for tPA and given IV BP medications. She was noted to have LUE swelling for which Doppler was negative for DVT, but she was started on antibiotics for cellulitis in her left arm following recent CTS with improvement in her leukocytosis. She developed JUNIOR, was evaluated by therapy found to have impairments in mobility and ADLs and deemed medically appropriate for discharge to ARU on 10-30-19. Overnight patient had elevated BPs and was transferred to PCU for HTN urgency where her medications were adjusted and she was transferred back to ARU for interrupted stay on 11-01-19. On initial eval patient reports her left wrist is less swollen and painful, but it is circulation tender and a she is having difficulty moving her hand. She denies any further nausea/vomiting or new weakness. REVIEW OF SYSTEMS: The following is a completed review of systems and has been reviewed. Review of systems otherwise unremarkable. PAIN: Patient self reports left wrist pain EYES: No recent vision changes EARS, NOSE, & THROAT: No throat pain, or dysphagia, or rhinorrhea CARDIOVASCULAR: Denies chest pain or palpitations PULMONARY: Denies shortness of breath GASTROINTESTINAL: Denies constipation/diarrhea GENITOURINARY: denies dysuria MUSCULOSKELETAL: s/p left carpal tunnel repair NEUROLOGICAL: + mild right left sided neglect HEMATOLOGICAL: denies easy bruising SKIN: left volar wrist incision PSYCHIATRIC: Unremarkable All other review of systems found to be negative. PAST MEDICAL HISTORY: as per hpi PAST SURGICAL HISTORY: Hysterectomy, appendectomy, cholecystectomy ALLERGIES: Please see below. MEDICATIONS: Please see below. FAMILY HISTORY: Cancer, CAD SOCIAL HISTORY: No smoking/etoh/illicit drugs DIET: low salt PHYSICAL EXAMINATION: VITAL SIGNS: Please see below. GENERAL: Pleasant and cooperative. No acute distress. HEENT: PERRL. Extraocular movements intact. Clear conjunctiva CARDIOVASCULAR: Regular rate and rhythm. No murmurs, rubs, or gallops LUNGS: Clear to auscultation bilaterally. No wheezes. No rhonchi ABDOMEN: Soft, nontender, nondistended. Positive bowel sounds. Normal active bowel sounds NEUROLOGICAL: Alert and oriented times to self and palce, unable to name the president Cranial nerves II through XII grossly intact. Sensation grossly intact to light touch except diminished left finger tips no dysmetria +extinction to touch on the left EXTREMITIES: 5\5 strength right upper extremity 5\5 strength right lower extremity. 5/5 strength in left lower extremity. left elbow flexors/extensors 5/5, wrist extension and au pair >3 however s/p CTS so exam limited SKIN: left wrist incision c/d/i with minimal erythema and swelling LABORATORY DATA: Please see below. IMAGING: Imaging documentation personally reviewed by record FUNCTIONAL STATUS: Premorbid: requiring some assistance all activities of daily life as well as m obility On Admission: Min-assist for functional transfers, ambulation, dressing, toileting GOALS: [id number] household distances, functional transfers, toileting, dressing, bathing ASSESSMENT:89-year-old F with past medical history of HTN and VTEs who presents status post stroke PLAN: 1. rehab- pt/ot advance gait and adls, strengthen/stretch/maintain rom all 4 limbs 2. Ortho-s/p recent CTS of left wrist with LUE cellulitis, NWB to left wrist for comfort and to avoid worsening infection 2. neuro- s/p left cerebellar stroke, c/u symptom management for vertigo/nausea/vomiting- meclizine and zofran prn -c/u statin for secondary prevention -monitor BPs and adjust 3. CArdiac- hx of HTN c/u ARB patient's GFR seems to be at baseline, c/u hydralazine, and amlodipine, medicine following -last ECHO +diastolic CHF, will order daily weights, patient with mild JUNIOR will avoid fluid restriction, medicine consulted to assist in overall management 4. Vasc- hx of DVT and PEs, c/u XArelto 15mg daily 5. Endo- hx of hypothyroidism, c/u Synthroid- patient with elevated TSH on admission, but nL T4- subclinical hypothyroidism will recommend f/u with PMD for dose adjustment 6. ID- left wrist/arm cellulitis following recent carpal tunnel surgery, s/p Cefazolin c/u Keflex 7. GI ppx- omeprazole 8. Pain- tylenol and tramadol 9. Dispo- tbd POST ADMISSION PHYSICIAN EVALUATION: Medical and functional status: Description of medical status, medical assessment: As above. Rehabilitation diagnosis and current and prior cold morbid medical conditions as above. Risk of complications and plans to mitigate them as above. Description of functional status current status is as above. Prior status as above. Status compared to preadmission: There are no clinically significant differences between the patient's current status and the information described on the preadmission screening document. Treatment plan anticipated: Treatment plan is as described above. Required disciplines including physical therapy, occupational therapy, others as noted above. Intensity of services: 3 hours a day, 6 days a week. Special considerations: There are no specific special or safety considerations that would likely preclude immediate implementation of an intensive rehabilitation program or subsequently influence the plan of care. ATTESTATION: Considering all the information above, it is my best judgment that this patient requires intensive rehabilitation therapy as described above and an inpatient hospital environment due to the complexity of nursing, medical, and rehabilitation needs required by the patient. Furthermore, this patient can reasonably be expected to participate in an benefit from an inpatient rehabilitation stay with an interdisciplinary team approach to the delivery of rehabilitation care under the direction and supervision of rehabilitation physician. PROGNOSIS: good ESTIMATED LENGTH OF STAY:12-14 days. PROJECTED DISCHARGE DESTINATION: Home with family support and any durable medical equipment required to increase functional safety and mobility. TIME SPENT COUNSELING AND COORDINATING INITIAL CARE: Greater than 70 minutes. Vital Signs Vital Signs Date Time Temp Pulse Resp B/P (MAP) Pulse Ox O2 Delivery O2 Flow Rate FiO2 10/30/19 15:30 97.3 74 16 181/81 (114) 94 Room Air Home Medications Scheduled Amlodipine Besylate (Amlodipine Besylate) 10 Mg Tablet, 10 MG PO DAILY Atorvastatin Calcium (Atorvastatin Calcium) 20 Mg Tablet, 40 MG PO QHS Cephalexin (Cephalexin) 500 Mg Capsule, 500 MG PO QID Hydralazine HCl (Hydralazine HCl) 50 Mg Tablet, 50 MG PO TID Hold if SBP< 160 Latanoprost (Xalatan) 0.005% 2.5ML Drops, 1 DROP OU QHS, (Reported) Levothyroxine Sodium (Synthroid) 75 Mcg Tablet, 75 MCG PO DAILY, (Reported) Losartan Potassium (Losartan Potassium) 100 Mg Tablet, 100 MG PO QHS Meclizine HCl (Meclizine HCl) 12.5 Mg Tablet, 12.5 MG PO TID Omeprazole (Omeprazole) 20 Mg Tablet.dr, 20 MG PO DAILY, (Reported) Polyethylene Glycol 3350 (Polyethylene Glycol 3350) 17 Gm Powd.pack, 1 PKT PO BID Rivaroxaban (Xarelto) 15 Mg Tablet, 15 MG PO QPM, (Reported) AT SUPPER Scheduled PRN Acetaminophen (Acetaminophen) 500 Mg Tablet, 1,000 MG PO TID PRN for PAIN / FEVER Ondansetron HCl (Ondansetron HCl) 4 Mg Tablet, 4 MG PO Q6HP PRN for NAUSEA OR VOMITING Sodium Phosphate,Shelby-Dibasic (Fleet Enema) 133 Ml Enema, 1 EA GA DAILYPRN PRN for CONSTIPATION Tramadol HCl (Tramadol HCl) 50 Mg Tablet, 50 MG PO Q6HP PRN for MODERATE PAIN (PS 5-7) Allergies Coded Allergies: allopurinol (Verified Allergy, Unknown, 10/27/19) doxycycline (Verified Allergy, Unknown, 10/27/19) colchicine (Verified Adverse Reaction, Unknown, gi bleed, 10/27/19) A-FIB/CHADSVASC A-FIB History Current/History of A-Fib/PAF?: No Current PO Anticoag Therapy: Yes MAMTA MALONEY MD Oct 30, 2019 13:38
[2019-10-30] MEDS ORDERED: traMADol 50 MG TAB PO PRN (13:45)
[2019-10-30] MEDS ORDERED: ONDANSETRON 4 MG ORAL DISINTEGRATING TAB PO PRN (13:45)
[2019-10-30] MEDS ORDERED: CEFA1INJ4 IV (15:10)
[2019-10-30] MEDS ORDERED: TRAM50TA2 PO (15:13)
[2019-10-30] MEDS ORDERED: ACET-683 PO (15:13)
[2019-10-30] MEDS ORDERED: SENN-52 PO (15:13)
[2019-10-30 15:30] VITALS: BP 181/81
[2019-10-30] MEDS: REMEDY PHYTOPLEX Z-GUARD PASTE 113GM TUBE (FROM STOREROOM PRODUCT) TOP SCH ×2 (16:00→21:00)
[2019-10-30 16:15] VITALS: BP 158/72
[2019-10-30] MEDS: METOPROLOL TART 25 MG TABLET PO SCH ×2 (16:48→21:31)
[2019-10-30] MEDS ORDERED: RIVAROXABAN 15 MG TAB (XARELTO) PO SCH (18:00)
[2019-10-30] MEDS ORDERED: LACTOBACILLUS ACIDOPHILUS CAP (BACID) PO SCH (18:00)
[2019-10-30] MEDS: MECLIZINE 12.5 MG TAB PO SCH ×2 (18:01→21:27)
[2019-10-30 20:00] VITALS: BP 124/59
[2019-10-30] MEDS ORDERED: DOCUSATE SODIUM 100 MG CAP PO SCH (21:00)
[2019-10-30] MEDS ORDERED: SIMVASTATIN 40 MG TAB PO SCH (21:00)
[2019-10-30] MEDS ORDERED: ACETAMINOPHEN TAB 650MG DOSE (2X325MG) PO SCH (21:00)
[2019-10-30] MEDS ORDERED: SENNA 8.6 MG TAB (SENOKOT) PO SCH (21:00)
[2019-10-30] MEDS: ceFAZolin SOD 1 GM in D5W MINI-BAG PLUS 50 ML IV SCH (21:31)
[2019-10-31] MEDS ORDERED: **hydrALAZINE HCL** 25 MG TAB PO ONE ×2 (00:30→02:15)
[2019-10-31] MEDS ORDERED: FLEET ENEMA PR PRN (01:45)
[2019-10-31] MEDS ORDERED: MOM 30ML SUSPENSION UDC PO PRN (02:15)
[2019-10-31] MEDS: ceFAZolin SOD 1 GM in D5W MINI-BAG PLUS 50 ML IV SCH (03:57)
[2019-10-31] MEDS ORDERED: hydrALAZINE 20MG/ML 1ML VIAL (J0360 PER 20MG) IV ONE (04:15)
[2019-10-31 04:24] VITALS: BP 200/80
[2019-10-31] MEDS ORDERED: amLODIPine 5 MG TAB PO SCH ×2 (04:30→09:00)
[2019-10-31] MEDS ORDERED: ACET1TAB55 PO (05:11)
[2019-10-31] MEDS ORDERED: TRAM50TA2 PO (05:11)
[2019-10-31] MEDS ORDERED: RISATAB3 PO (05:11)
[2019-10-31] MEDS ORDERED: OMEP-218 PO (05:11)
[2019-10-31] MEDS ORDERED: MECL12.589 PO (05:11)
[2019-10-31] MEDS ORDERED: SIMV40TA20 PO ×2 (05:11→06:30)
[2019-10-31] MEDS ORDERED: AMLO1TAB24 PO (05:11)
[2019-10-31] MEDS ORDERED: XARE15TA PO ×2 (05:11→06:30)
[2019-10-31] MEDS ORDERED: LEVO75TA4 PO (05:11)
[2019-10-31] MEDS ORDERED: DOCU100C16 PO (05:11)
[2019-10-31] MEDS ORDERED: LEVOTHYROXINE 75MCG TABLET (0.075MG) PO SCH (06:00)
[2019-10-31] MEDS ORDERED: SYNT75TA PO (06:30)
[2019-10-31] MEDS ORDERED: OMEP20TA18 PO (06:30)
[2019-10-31] MEDS ORDERED: XALA0.007 OU (06:30)
[2019-10-31] MEDS ORDERED: LOSA100T50 PO (06:30)
[2019-10-31] MEDS ORDERED: OMEPRAZOLE 20 MG CAP PO SCH (09:00)
[2019-11-01] MEDS ORDERED: ONDA-83 PO (07:29)
[2019-11-01] MEDS ORDERED: AMLO1TAB25 PO (07:29)
[2019-11-01] MEDS ORDERED: HYDR50TA PO (07:29)
[2019-11-01] MEDS ORDERED: PEG1POW PO (07:29)
[2019-11-01] MEDS ORDERED: CEPH500C PO (07:29)
[2019-11-01] MEDS ORDERED: ATOR1TAB21 PO (07:29)
[2019-11-01] MEDS ORDERED: MECL12.589 PO (07:29)
[2019-11-01] MEDS ORDERED: ACET-683 PO (07:29)
[2019-11-01] MEDS ORDERED: FLEEENE12 PR (07:29)
[2019-11-01] MEDS ORDERED: LOSA100T50 PO (07:29)
[2019-11-01] MEDS ORDERED: TRAM50TA2 PO (07:29)
[2019-11-01 12:00] VITALS: BP 137/66
[2019-11-01] MEDS ORDERED: MECLIZINE 12.5 MG TAB PO PRN (13:15)
[2019-11-01] MEDS: CEPHALEXIN 500 MG CAP PO SCH ×3 (13:55→20:07)
[2019-11-01 14:00] VITALS: BP 142/63
[2019-11-01 17:29] VITALS: BP 165/70
[2019-11-01] MEDS: **hydrALAZINE** 50 MG TAB PO SCH ×2 (17:30→20:08)
[2019-11-01] MEDS: RIVAROXABAN 15 MG TAB (XARELTO) PO SCH (17:31)
[2019-11-01] MEDS: LACTOBACILLUS ACIDOPHILUS CAP (BACID) PO SCH (17:31)
[2019-11-01] MEDS: ACETAMINOPHEN 500 MG TAB PO SCH ×2 (17:31→20:09)
[2019-11-01 20:00] VITALS: BP 180/78
[2019-11-01] MEDS: LOSARTAN 50MG TABLET PO SCH (20:05)
[2019-11-01] MEDS: SENNA 8.6 MG TAB (SENOKOT) PO SCH (20:06)
[2019-11-01] MEDS: traMADol 50 MG TAB PO PRN (20:07)
[2019-11-01] MEDS: ONDANSETRON 4 MG TAB PO PRN (20:07)
[2019-11-01] MEDS: DOCUSATE SODIUM 100 MG CAP PO SCH (20:07)
[2019-11-01] MEDS: LATANOPROST 0.005% OPHTH SOLN 2.5 ML OU SCH (20:08)
[2019-11-01] MEDS: ATORVASTATIN 20 MG TAB PO SCH (20:08)
[2019-11-01] MEDS ORDERED: ATORVASTATIN 10 MG TAB PO SCH (21:00)
[2019-11-01 22:03] VITALS: BP 168/70
[2019-11-02 05:04] VITALS: BP 174/78
[2019-11-02] MEDS: LEVOTHYROXINE 75MCG TABLET (0.075MG) PO SCH (05:28)
[2019-11-02 07:15] LABS: BASO # 0.1 10^3/uL (0.0-0.2); BASO % 0.6 % (0.0-1.0); EOS # 1.5 10^3/uL (0.0-0.5); EOS % 14.2 % (0.0-3.0); HEMATOCRIT 40.6 % (36.0-47.0); HEMOGLOBIN 12.8 g/dl (12.0-15.5); LYMPH # 2.5 10^3/uL (1.5-5.0); LYMPH % 23.7 % (24.0-44.0); MEAN CORPUSCULAR HEMOGLOBIN 30.8 pg (27.0-33.0); MEAN CORPUSCULAR HGB CONC 31.5 g/dl (32.0-36.5); MEAN CORPUSCULAR VOLUME 97.8 fl (80.0-96.0); MONO # 0.9 10^3/uL (0.0-0.8); MONO % 8.3 % (0.0-5.0); NEUTROPHILS # 5.5 10^3/uL (1.5-8.5); NEUTROPHILS % 52.4 % (36.0-66.0); PLATELET COUNT, AUTOMATED 363 10^3/uL (150-450); RED BLOOD COUNT 4.15 10^6/uL (4.00-5.40); WHITE BLOOD COUNT 10.4 10^3/uL (4.0-10.0)
[2019-11-02] MEDS: DOCUSATE SODIUM 100 MG CAP PO SCH ×2 (07:20→20:49)
[2019-11-02 07:58] LABS: BILIRUBIN,TOTAL 0.3 MG/DL (0.2-1.0); CALCIUM LEVEL 9.2 MG/DL (8.8-10.2); CREATININE FOR GFR 1.33 MG/DL (0.55-1.30); GLOMERULAR FILTRATION RATE 40.1 (>32); TOTAL PROTEIN 6.7 GM/DL (6.4-8.2)
[2019-11-02] MEDS: LACTOBACILLUS ACIDOPHILUS CAP (BACID) PO SCH ×3 (08:00→17:18)
[2019-11-02] MEDS: OMEPRAZOLE 20 MG CAP PO SCH (08:43)
[2019-11-02] MEDS: CEPHALEXIN 500 MG CAP PO SCH ×4 (08:43→20:52)
[2019-11-02] MEDS: **hydrALAZINE** 50 MG TAB PO SCH (08:44)
[2019-11-02] MEDS: ACETAMINOPHEN 500 MG TAB PO SCH ×3 (08:45→20:51)
[2019-11-02] MEDS: amLODIPine 10 MG TAB PO SCH (08:45)
[2019-11-02] MEDS: METOPROLOL TART 25 MG TABLET PO SCH ×2 (09:15→20:52)
[2019-11-02 11:30] VITALS: BP 140/65
--- NOTE | 2019-11-02 11:35 | IPNPDOC ---
PM&R Progress Note DATE OF SERVICE: Nov 02, 2019 Operations Planner Progress Note Subjective: Patient seen in therapy stating she feels steady on her feet, but that her left hand feels stiff. She was asking for heat and encouraged to move her finger and elevate her hand when out of therapy. REVIEW OF SYSTEMS: The following is a completed review of systems and has been reviewed. Review of systems otherwise unremarkable. PAIN: Patient self reports left wrist pain EYES: No recent vision changes EARS, NOSE, & THROAT: No throat pain, or dysphagia, or rhinorrhea CARDIOVASCULAR: Denies chest pain or palpitations PULMONARY: Denies shortness of breath GASTROINTESTINAL: Denies constipation/diarrhea GENITOURINARY: denies dysuria MUSCULOSKELETAL: s/p left carpal tunnel repair NEUROLOGICAL: + mild right left sided neglect HEMATOLOGICAL: denies easy bruising SKIN: left volar wrist incision PSYCHIATRIC: Unremarkable All other review of systems found to be negative. PHYSICAL EXAMINATION: VITAL SIGNS: Please see below. GENERAL: Pleasant and cooperative. No acute distress. HEENT: PERRL. Extraocular movements intact. Clear conjunctiva CARDIOVASCULAR: Regular rate and rhythm. No murmurs, rubs, or gallops LUNGS: Clear to auscultation bilaterally. No wheezes. No rhonchi ABDOMEN: Soft, nontender, nondistended. Positive bowel sounds. Normal active bowel sounds NEUROLOGICAL: Alert and oriented times to self and palce, unable to name the president Cranial nerves II through XII grossly intact. Sensation grossly intact to light touch except diminished left finger tips no dysmetria +extinction to touch on the left EXTREMITIES: 5\5 strength right upper extremity 5\5 strength right lower extremity. 5/5 strength in left lower extremity. left elbow flexors/extensors 5/5, wrist extension and grain processor >3 however s/p CTS so exam limited SKIN: left wrist incision c/d/i with minimal erythema and swelling ASSESSMENT:89-year-old F with past medical history of HTN and VTEs who presents status post stroke PLAN: 1. rehab- pt/ot advance gait and adls, strengthen/stretch/maintain rom all 4 limbs- ambulating without AD- room privileges in place 2. Ortho-s/p recent CTS of left wrist with LUE cellulitis, NWB to left wrist for comfort and to avoid worsening infection 2. neuro- s/p left cerebellar stroke, c/u symptom management for vertigo/nausea/vomiting- meclizine and zofran prn -c/u statin for secondary prevention -monitor BPs and adjust 3. CArdiac- hx of HTN with elevated BPs, c/u ARB patient's GFR seems to be at baseline, c/u hydralazine (increased dosing and frequency today), will add metoprolol, c/u amlodipine, medicine following -last ECHO +diastolic CHF, will order daily weights, patient with mild JUNIOR will avoid fluid restriction, medicine consulted to assist in overall management 4. Vasc- hx of DVT and PEs, c/u Xarelto 15mg daily 5. Endo- hx of hypothyroidism, c/u Synthroid- patient with elevated TSH on admission, but nL T4- subclinical hypothyroidism will recommend f/u with PMD for dose adjustment 6. ID- left wrist/arm cellulitis following recent carpal tunnel surgery, s/p Cefazolin c/u Keflex and elevate hand 7. GI ppx- omeprazole 8. Pain- tylenol and tramadol 9. Dispo- tbd Allergies Coded Allergies: allopurinol (Verified Allergy, Unknown, 10/27/19) doxycycline (Verified Allergy, Unknown, 10/27/19) colchicine (Verified Adverse Reaction, Unknown, gi bleed, 10/27/19) Vital Signs Vital Signs Date Time Temp Pulse Resp B/P (MAP) Pulse Ox O2 Delivery O2 Flow Rate FiO2 11/02/19 08:45 90 11/02/19 08:44 180/78 11/02/19 05:04 97.1 18 92 Room Air Laboratory Data CBC/BMP Laboratory Tests 11/02/19 06:56 Labs 24H Laboratory Tests 2 11/02/19 06:56: Immature Granulocyte % (Auto) 0.8, Neutrophils (%) (Auto) 52.4, Lymphocytes (%) (Auto) 23.7L, Monocytes (%) (Auto) 8.3H, Eosinophils (%) (Auto) 14.2H, Basophils (%) (Auto) 0.6, Neutrophils # (Auto) 5.5, Lymphocytes # (Auto) 2.5, Monocytes # (Auto) 0.9H, Eosinophils # (Auto) 1.5H, Basophils # (Auto) 0.1, Nucleated Red Blood Cells % (auto) 0.0, Anion Gap 8, Glomerular Filtration Rate 40.1, Calcium Level 9.2, Total Bilirubin 0.3, Aspartate Amino Transf (AST/SGOT) 42H, Alanine Aminotransferase (ALT/SGPT) 19, Alkaline Phosphatase 143H, Total Protein 6.7, Albumin 3.0L, Albumin/Globulin Ratio 0.8L Current Medications Current Medications Current Medications Medications (Trade) Dose Ordered Sig/Kamryn Route PRN Reason Start Time Stop Time Status Last Admin Dose Admin Acetaminophen (Tylenol Tab) 1,000 mg TID PO 10/30/19 21:00 10/31/19 05:22 DC 10/30/19 21:28 Acetaminophen (Tylenol Tab) 1,000 mg TID PO 11/01/19 16:00 11/02/19 08:45 Amlodipine Besylate (Norvasc) 5 mg DAILY PO 10/31/19 04:30 10/31/19 05:22 DC Amlodipine Besylate (Norvasc) 5 mg DAILY PO 10/31/19 09:00 10/31/19 04:23 DC Amlodipine Besylate (Norvasc) 10 mg DAILY PO 11/02/19 09:00 11/02/19 08:45 Atorvastatin Calcium (Lipitor) 10 mg QHS PO 11/01/19 21:00 11/01/19 13:45 DC Atorvastatin Calcium (Lipitor) 40 mg QHS PO 11/01/19 21:00 11/01/19 20:08 Cefazolin Sodium 1 gm/Dextrose 50 ml @ 100 mls/hr Q8H IV 10/30/19 20:00 10/31/19 05:22 DC 10/31/19 03:57 Cephalexin Monohydrate (Keflex) 500 mg QID PO 11/01/19 13:00 11/06/19 09:01 11/02/19 08:43 Docusate Sodium (Colace) 100 mg BID PO 10/30/19 21:00 10/31/19 05:22 DC 10/30/19 21:27 Docusate Sodium (Colace) 100 mg BID PO 11/01/19 21:00 11/01/19 20:07 Hydralazine HCl (Apresoline) 50 mg TID PO 11/01/19 16:00 11/02/19 09:15 DC 11/02/19 08:44 Hydralazine HCl (Apresoline) 75 mg Q6H PO 11/02/19 12:00 Lactobacillus Acidophilus (Bacid) 1 ea WM PO 10/30/19 18:00 10/31/19 05:22 DC 10/30/19 16:48 Lactobacillus Acidophilus (Bacid) 1 ea WM PO 11/01/19 18:00 11/01/19 17:31 Latanoprost (Xalatan 0.005% Op Soln) 1 drop QHS OU 11/01/19 21:00 11/01/19 20:08 Levothyroxine Sodium (Synthroid) 75 mcg DAILY@06 PO 10/31/19 06:00 10/31/19 05:22 DC Levothyroxine Sodium (Synthroid) 75 mcg DAILY@06 PO 11/02/19 06:00 11/02/19 05:28 Losartan Potassium (Cozaar) 100 mg QHS PO 11/01/19 21:00 11/01/19 20:05 Magnesium Hydroxide (Milk Of Magnesia) 30 ml DAILYPRN PRN PO CONSTIPATION 10/31/19 02:15 10/31/19 05:22 DC Meclizine HCl (Antivert) 12.5 mg Q6HP PRN PO DIZZINESS 11/01/19 13:15 Meclizine HCl (Antivert) 12.5 mg TID PO 10/30/19 16:00 10/31/19 05:22 DC 10/30/19 21:27 Metoprolol Tartrate (Lopressor) 25 mg BID PO 11/02/19 09:15 Metoprolol Tartrate (Lopressor) 25 mg Q8H PO 10/30/19 14:00 10/31/19 05:22 DC 10/30/19 21:31 Omeprazole (PriLOSEC) 20 mg DAILY PO 10/31/19 09:00 10/31/19 05:22 DC Omeprazole (PriLOSEC) 20 mg DAILY PO 11/02/19 09:00 11/02/19 08:43 Ondansetron HCl (Zofran Odt) 8 mg Q6HP PRN PO NAUSEA 10/30/19 13:45 10/31/19 05:22 DC Ondansetron HCl (Zofran) 4 mg Q6HP PRN PO NAUSEA 11/01/19 13:15 11/01/19 20:07 Rivaroxaban (Xarelto) 15 mg DAILY@18 PO 11/01/19 18:00 11/01/19 17:31 Rivaroxaban (Xarelto) 15 mg DAILY@1800 PO 10/30/19 18:00 10/31/19 05:22 DC 10/30/19 18:01 Senna (Senokot) 1 tab QHS PO 10/30/19 21:00 10/31/19 05:22 DC 10/30/19 21:27 Senna (Senokot) 1 tab QHS PO 11/01/19 21:00 11/01/19 20:06 Simvastatin (Zocor) 40 mg QHS PO 10/30/19 21:00 10/31/19 05:22 DC 10/30/19 21:27 Sodium Biphosphate/ Sodium Phosphate (Fleet Enema) 1 ea DAILYPRN PRN [place] CONSTIPATION 10/31/19 01:45 10/31/19 05:22 DC Tramadol HCl (Ultram) 50 mg Q6HP PRN PO MODERATE PAIN (PS 5-7) 10/30/19 13:45 10/31/19 05:22 DC Tramadol HCl (Ultram) 50 mg Q6HP PRN PO MODERATE PAIN (PS 5-7) 11/01/19 13:15 11/01/19 20:07 MAMTA MALOENY MD Nov 02, 2019 11:35
[2019-11-02] MEDS: **hydrALAZINE HCL** 25 MG TAB PO SCH ×2 (12:05→17:19)
[2019-11-02] MEDS: traMADol 50 MG TAB PO PRN ×2 (12:06→22:43)
[2019-11-02 14:00] VITALS: BP 131/59
[2019-11-02] MEDS: RIVAROXABAN 15 MG TAB (XARELTO) PO SCH (17:18)
[2019-11-02 20:30] VITALS: BP 180/82
[2019-11-02] MEDS: SENNA 8.6 MG TAB (SENOKOT) PO SCH (20:50)
[2019-11-02] MEDS: ATORVASTATIN 20 MG TAB PO SCH (20:51)
[2019-11-02] MEDS: LOSARTAN 50MG TABLET PO SCH (20:51)
[2019-11-02] MEDS: LATANOPROST 0.005% OPHTH SOLN 2.5 ML OU SCH (20:54)
[2019-11-03] MEDS: traMADol 50 MG TAB PO PRN ×3 (06:02→23:27)
[2019-11-03] MEDS: **hydrALAZINE HCL** 25 MG TAB PO SCH ×5 (06:02→23:30)
[2019-11-03] MEDS: LEVOTHYROXINE 75MCG TABLET (0.075MG) PO SCH (06:02)
[2019-11-03 06:08] VITALS: BP 143/67
[2019-11-03 07:13] LABS: BASO # 0.1 10^3/uL (0.0-0.2); BASO % 0.5 % (0.0-1.0); EOS # 1.5 10^3/uL (0.0-0.5); EOS % 16.3 % (0.0-3.0); HEMATOCRIT 38.5 % (36.0-47.0); HEMOGLOBIN 12.1 g/dl (12.0-15.5); LYMPH # 2.3 10^3/uL (1.5-5.0); LYMPH % 25.4 % (24.0-44.0); MEAN CORPUSCULAR HEMOGLOBIN 30.6 pg (27.0-33.0); MEAN CORPUSCULAR HGB CONC 31.4 g/dl (32.0-36.5); MEAN CORPUSCULAR VOLUME 97.2 fl (80.0-96.0); MONO # 0.7 10^3/uL (0.0-0.8); MONO % 7.1 % (0.0-5.0); NEUTROPHILS # 4.6 10^3/uL (1.5-8.5); NEUTROPHILS % 49.8 % (36.0-66.0); PLATELET COUNT, AUTOMATED 335 10^3/uL (150-450); RED BLOOD COUNT 3.96 10^6/uL (4.00-5.40); WHITE BLOOD COUNT 9.2 10^3/uL (4.0-10.0)
[2019-11-03 07:31] LABS: CALCIUM LEVEL 9.1 MG/DL (8.8-10.2); CREATININE FOR GFR 1.43 MG/DL (0.55-1.30); GLOMERULAR FILTRATION RATE 36.9 (>32); POTASSIUM SERUM 4.1 MEQ/L (3.5-5.1)
[2019-11-03] MEDS: METOPROLOL TART 25 MG TABLET PO SCH ×2 (08:58→20:28)
[2019-11-03] MEDS: OMEPRAZOLE 20 MG CAP PO SCH (08:58)
[2019-11-03] MEDS: CEPHALEXIN 500 MG CAP PO SCH ×4 (08:58→20:29)
[2019-11-03] MEDS: ACETAMINOPHEN 500 MG TAB PO SCH ×3 (08:59→20:29)
[2019-11-03] MEDS: amLODIPine 10 MG TAB PO SCH (09:00)
[2019-11-03] MEDS: DOCUSATE SODIUM 100 MG CAP PO SCH (09:00)
[2019-11-03] MEDS: LACTOBACILLUS ACIDOPHILUS CAP (BACID) PO SCH ×3 (09:00→17:52)
--- NOTE | 2019-11-03 11:29 | IPNPDOC ---
PM&R Progress Note DATE OF SERVICE: Nov 03, 2019 Disk Recordist Progress Note Subjective: Patient reporting her left hand feels less stiff once she starts moving her fingers and is feeling more steady on her feet. REVIEW OF SYSTEMS: The following is a completed review of systems and has been reviewed. Review of systems otherwise unremarkable. PAIN: Patient self reports left wrist pain EYES: No recent vision changes EARS, NOSE, & THROAT: No throat pain, or dysphagia, or rhinorrhea CARDIOVASCULAR: Denies chest pain or palpitations PULMONARY: Denies shortness of breath GASTROINTESTINAL: Denies constipation/diarrhea GENITOURINARY: denies dysuria MUSCULOSKELETAL: s/p left carpal tunnel repair NEUROLOGICAL: + mild right left sided neglect HEMATOLOGICAL: denies easy bruising SKIN: left volar wrist incision PSYCHIATRIC: Unremarkable All other review of systems found to be negative. PHYSICAL EXAMINATION: VITAL SIGNS: Please see below. GENERAL: Pleasant and cooperative. No acute distress. HEENT: PERRL. Extraocular movements intact. Clear conjunctiva CARDIOVASCULAR: Regular rate and rhythm. No murmurs, rubs, or gallops LUNGS: Clear to auscultation bilaterally. No wheezes. No rhonchi ABDOMEN: Soft, nontender, nondistended. Positive bowel sounds. Normal active bowel sounds NEUROLOGICAL: Alert and oriented times to self and palce, unable to name the president Cranial nerves II through XII grossly intact. Sensation grossly intact to light touch except diminished left finger tips no dysmetria +extinction to touch on the left EXTREMITIES: 5\5 strength right upper extremity 5\5 strength right lower extremity. 5/5 strength in left lower extremity. left elbow flexors/extensors 5/5, wrist extension and food service aide >3 however s/p CTS so exam limited SKIN: left wrist incision c/d/i with minimal erythema and swelling ASSESSMENT:89-year-old F with past medical history of HTN and VTEs who presents status post stroke PLAN: 1. rehab- pt/ot advance gait and adls, strengthen/stretch/maintain rom all 4 l imbs- ambulating without AD- room privileges in place 2. Ortho-s/p recent CTS of left wrist with LUE cellulitis, NWB to left wrist for comfort and to avoid worsening infection 2. neuro- s/p left cerebellar stroke, c/u symptom management for vertigo/nausea/vomiting- meclizine and zofran prn -c/u statin for secondary prevention -monitor BPs and adjust 3. CArdiac- hx of HTN with elevated BPs, c/u ARB patient's GFR seems to be at baseline, c/u hydralazine (increased dosing and frequency today), will add metoprolol, c/u amlodipine, medicine following -last ECHO +diastolic CHF, will order daily weights, patient with mild JUNIOR will avoid fluid restriction, medicine consulted to assist in overall management 4. Vasc- hx of DVT and PEs, c/u Xarelto 15mg daily 5. Endo- hx of hypothyroidism, c/u Synthroid- patient with elevated TSH on admission, but nL T4- subclinical hypothyroidism will recommend f/u with PMD for dose adjustment 6. ID- left wrist/arm cellulitis following recent carpal tunnel surgery, s/p Cefazolin c/u Keflex and elevate hand 7. GI ppx- omeprazole 8. Pain- tylenol and tramadol 9. Dispo- 11-06-19 to home, patient with ortho f/u for CTS on 11-07-19 Allergies Coded Allergies: allopurinol (Verified Allergy, Unknown, 10/27/19) doxycycline (Verified Allergy, Unknown, 10/27/19) colchicine (Verified Adverse Reaction, Unknown, gi bleed, 10/27/19) Vital Signs Vital Signs Date Time Temp Pulse Resp B/P (MAP) Pulse Ox O2 Delivery O2 Flow Rate FiO2 11/03/19 08:58 73 143/67 11/03/19 06:51 18 Room Air 11/03/19 06:08 97.3 94 Laboratory Data CBC/BMP Laboratory Tests 11/03/19 06:37 Labs 24H Laboratory Tests 2 11/03/19 06:37: Immature Granulocyte % (Auto) 0.9, Neutrophils (%) (Auto) 49.8, Lymphocytes (%) (Auto) 25.4, Monocytes (%) (Auto) 7.1H, Eosinophils (%) (Auto) 16.3H, Basophils (%) (Auto) 0.5, Neutrophils # (Auto) 4.6, Lymphocytes # (Auto) 2.3, Monocytes # (Auto) 0.7, Eosinophils # (Auto) 1.5H, Basophils # (Auto) 0.1, Nucleated Red Blood Cells % (auto) 0.0, Anion Gap 7L, Glomerular Filtration Rate 36.9, Calcium Level 9.1 Current Medications Current Medications Current Medications Medications (Trade) Dose Ordered Sig/Kamryn Route PRN Reason Start Time Stop Time Status Last Admin Dose Admin Acetaminophen (Tylenol Tab) 1,000 mg TID PO 10/30/19 21:00 10/31/19 05:22 DC 10/30/19 21:28 Acetaminophen (Tylenol Tab) 1,000 mg TID PO 11/01/19 16:00 11/03/19 08:59 Amlodipine Besylate (Norvasc) 5 mg DAILY PO 10/31/19 04:30 10/31/19 05:22 DC Amlodipine Besylate (Norvasc) 5 mg DAILY PO 10/31/19 09:00 10/31/19 04:23 DC Amlodipine Besylate (Norvasc) 10 mg DAILY PO 11/02/19 09:00 11/03/19 09:00 Atorvastatin Calcium (Lipitor) 10 mg QHS PO 11/01/19 21:00 11/01/19 13:45 DC Atorvastatin Calcium (Lipitor) 40 mg QHS PO 11/01/19 21:00 11/02/19 20:51 Cefazolin Sodium 1 gm/Dextrose 50 ml @ 100 mls/hr Q8H IV 10/30/19 20:00 10/31/19 05:22 DC 10/31/19 03:57 Cephalexin Monohydrate (Keflex) 500 mg QID PO 11/01/19 13:00 11/06/19 09:01 11/03/19 08:58 Docusate Sodium (Colace) 100 mg BID PO 10/30/19 21:00 10/31/19 05:22 DC 10/30/19 21:27 Docusate Sodium (Colace) 100 mg BID PO 11/01/19 21:00 11/01/19 20:07 Hydralazine HCl (Apresoline) 50 mg TID PO 11/01/19 16:00 11/02/19 09:15 DC 11/02/19 08:44 Hydralazine HCl (Apresoline) 75 mg Q6H PO 11/02/19 12:00 11/03/19 06:02 Lactobacillus Acidophilus (Bacid) 1 ea WM PO 10/30/19 18:00 10/31/19 05:22 DC 10/30/19 16:48 Lactobacillus Acidophilus (Bacid) 1 ea WM PO 11/01/19 18:00 11/03/19 09:00 Latanoprost (Xalatan 0.005% Op Soln) 1 drop QHS OU 11/01/19 21:00 11/02/19 20:54 Levothyroxine Sodium (Synthroid) 75 mcg DAILY@06 PO 10/31/19 06:00 10/31/19 05:22 DC Levothyroxine Sodium (Synthroid) 75 mcg DAILY@06 PO 11/02/19 06:00 11/03/19 06:02 Losartan Potassium (Cozaar) 100 mg QHS PO 11/01/19 21:00 11/02/19 20:51 Magnesium Hydroxide (Milk Of Magnesia) 30 ml DAILYPRN PRN PO CONSTIPATION 10/31/19 02:15 10/31/19 05:22 DC Meclizine HCl (Antivert) 12.5 mg Q6HP PRN PO DIZZINESS 11/01/19 13:15 Meclizine HCl (Antivert) 12.5 mg TID PO 10/30/19 16:00 10/31/19 05:22 DC 10/30/19 21:27 Metoprolol Tartrate (Lopressor) 25 mg BID PO 11/02/19 09:15 11/03/19 08:58 Metoprolol Tartrate (Lopressor) 25 mg Q8H PO 10/30/19 14:00 10/31/19 05:22 DC 10/30/19 21:31 Omeprazole (PriLOSEC) 20 mg DAILY PO 10/31/19 09:00 10/31/19 05:22 DC Omeprazole (PriLOSEC) 20 mg DAILY PO 11/02/19 09:00 11/03/19 08:58 Ondansetron HCl (Zofran Odt) 8 mg Q6HP PRN PO NAUSEA 10/30/19 13:45 10/31/19 05:22 DC Ondansetron HCl (Zofran) 4 mg Q6HP PRN PO NAUSEA 11/01/19 13:15 11/01/19 20:07 Rivaroxaban (Xarelto) 15 mg DAILY@18 PO 11/01/19 18:00 11/02/19 17:18 Rivaroxaban (Xarelto) 15 mg DAILY@1800 PO 10/30/19 18:00 10/31/19 05:22 DC 10/30/19 18:01 Senna (Senokot) 1 tab QHS PO 10/30/19 21:00 10/31/19 05:22 DC 10/30/19 21:27 Senna (Senokot) 1 tab QHS PO 11/01/19 21:00 11/01/19 20:06 Simvastatin (Zocor) 40 mg QHS PO 10/30/19 21:00 10/31/19 05:22 DC 10/30/19 21:27 Sodium Biphosphate/ Sodium Phosphate (Fleet Enema) 1 ea DAILYPRN PRN [place] CONSTIPATION 10/31/19 01:45 10/31/19 05:22 DC Tramadol HCl (Ultram) 50 mg Q6HP PRN PO MODERATE PAIN (PS 5-7) 10/30/19 13:45 10/31/19 05:22 DC Tramadol HCl (Ultram) 50 mg Q6HP PRN PO MODERATE PAIN (PS 5-7) 11/01/19 13:15 11/03/19 06:02 MAMTA MALONEY MD Nov 03, 2019 11:29
[2019-11-03] MEDS ORDERED: LOPERAMIDE 2 MG CAPLET PO PRN (13:45)
[2019-11-03 14:00] VITALS: BP 144/80
[2019-11-03] MEDS: RIVAROXABAN 15 MG TAB (XARELTO) PO SCH (17:51)
[2019-11-03 17:53] VITALS: BP 141/62
[2019-11-03 20:00] VITALS: BP 150/70
[2019-11-03] MEDS: LOSARTAN 50MG TABLET PO SCH (20:28)
[2019-11-03] MEDS: ATORVASTATIN 20 MG TAB PO SCH (20:29)
[2019-11-03] MEDS: LATANOPROST 0.005% OPHTH SOLN 2.5 ML OU SCH (20:30)
[2019-11-04] MEDS: ONDANSETRON 4 MG TAB PO PRN (00:16)
[2019-11-04] MEDS: LEVOTHYROXINE 75MCG TABLET (0.075MG) PO SCH (05:50)
[2019-11-04] MEDS: **hydrALAZINE HCL** 25 MG TAB PO SCH ×3 (05:50→17:04)
[2019-11-04 06:49] VITALS: BP 150/66
[2019-11-04] MEDS: OMEPRAZOLE 20 MG CAP PO SCH (07:28)
[2019-11-04] MEDS: amLODIPine 10 MG TAB PO SCH (07:28)
[2019-11-04] MEDS: LACTOBACILLUS ACIDOPHILUS CAP (BACID) PO SCH ×3 (07:28→17:04)
[2019-11-04] MEDS: CEPHALEXIN 500 MG CAP PO SCH ×4 (07:28→21:42)
[2019-11-04] MEDS: ACETAMINOPHEN 500 MG TAB PO SCH ×3 (07:29→21:42)
[2019-11-04] MEDS: METOPROLOL TART 25 MG TABLET PO SCH ×2 (07:29→21:51)
[2019-11-04] MEDS: traMADol 50 MG TAB PO PRN (11:03)
[2019-11-04 12:09] VITALS: BP 130/61
[2019-11-04 14:00] VITALS: BP 126/60
[2019-11-04 17:03] VITALS: BP 146/64
[2019-11-04] MEDS: RIVAROXABAN 15 MG TAB (XARELTO) PO SCH (17:04)
[2019-11-04 20:00] VITALS: BP 149/68
[2019-11-04] MEDS: ATORVASTATIN 20 MG TAB PO SCH (21:44)
[2019-11-04] MEDS: LATANOPROST 0.005% OPHTH SOLN 2.5 ML OU SCH (21:49)
[2019-11-04] MEDS: LOSARTAN 50MG TABLET PO SCH (21:50)
[2019-11-05] MEDS: LEVOTHYROXINE 75MCG TABLET (0.075MG) PO SCH (06:49)
[2019-11-05 06:52] VITALS: BP 137/63
[2019-11-05] MEDS: **hydrALAZINE HCL** 25 MG TAB PO SCH ×5 (07:01→23:10)
[2019-11-05] MEDS: METOPROLOL TART 25 MG TABLET PO SCH ×2 (08:24→20:32)
[2019-11-05] MEDS: LACTOBACILLUS ACIDOPHILUS CAP (BACID) PO SCH ×3 (08:34→17:11)
[2019-11-05] MEDS: ACETAMINOPHEN 500 MG TAB PO SCH ×3 (08:34→20:33)
[2019-11-05] MEDS: OMEPRAZOLE 20 MG CAP PO SCH (08:34)
[2019-11-05] MEDS: CEPHALEXIN 500 MG CAP PO SCH ×4 (08:34→20:32)
[2019-11-05] MEDS: amLODIPine 10 MG TAB PO SCH (08:34)
[2019-11-05 12:02] VITALS: BP 129/60
[2019-11-05] MEDS: traMADol 50 MG TAB PO PRN ×2 (13:33→20:34)
[2019-11-05 14:00] VITALS: BP 127/58
[2019-11-05 17:09] VITALS: BP 159/70
[2019-11-05] MEDS: RIVAROXABAN 15 MG TAB (XARELTO) PO SCH (17:11)
[2019-11-05 20:00] VITALS: BP 125/70
[2019-11-05] MEDS: ATORVASTATIN 20 MG TAB PO SCH (20:32)
[2019-11-05] MEDS: LOSARTAN 50MG TABLET PO SCH (20:33)
[2019-11-05] MEDS: LATANOPROST 0.005% OPHTH SOLN 2.5 ML OU SCH (20:34)
[2019-11-06] MEDS: **hydrALAZINE HCL** 25 MG TAB PO SCH ×2 (06:00→11:46)
[2019-11-06] MEDS: LEVOTHYROXINE 75MCG TABLET (0.075MG) PO SCH (06:08)
[2019-11-06] MEDS: traMADol 50 MG TAB PO PRN (06:09)
[2019-11-06 06:25] VITALS: BP 136/62
[2019-11-06 06:54] LABS: BASO # 0.1 10^3/uL (0.0-0.2); BASO % 1.3 % (0.0-1.0); EOS # 0.9 10^3/uL (0.0-0.5); EOS % 10.3 % (0.0-3.0); HEMATOCRIT 38.6 % (36.0-47.0); HEMOGLOBIN 12.1 g/dl (12.0-15.5); LYMPH # 2.4 10^3/uL (1.5-5.0); LYMPH % 26.5 % (24.0-44.0); MEAN CORPUSCULAR HEMOGLOBIN 30.3 pg (27.0-33.0); MEAN CORPUSCULAR HGB CONC 31.3 g/dl (32.0-36.5); MEAN CORPUSCULAR VOLUME 96.7 fl (80.0-96.0); MONO # 0.8 10^3/uL (0.0-0.8); MONO % 8.3 % (0.0-5.0); NEUTROPHILS # 4.7 10^3/uL (1.5-8.5); NEUTROPHILS % 52.7 % (36.0-66.0); PLATELET COUNT, AUTOMATED 379 10^3/uL (150-450); RED BLOOD COUNT 3.99 10^6/uL (4.00-5.40)
[2019-11-06 07:23] LABS: CALCIUM LEVEL 9.4 MG/DL (8.8-10.2); CREATININE FOR GFR 1.73 MG/DL (0.55-1.30); GLOMERULAR FILTRATION RATE 29.6 (>32); POTASSIUM SERUM 4.2 MEQ/L (3.5-5.1)
[2019-11-06] MEDS: amLODIPine 10 MG TAB PO SCH (08:30)
[2019-11-06] MEDS: OMEPRAZOLE 20 MG CAP PO SCH (08:30)
[2019-11-06] MEDS: LACTOBACILLUS ACIDOPHILUS CAP (BACID) PO SCH ×2 (08:31→12:06)
[2019-11-06] MEDS: METOPROLOL TART 25 MG TABLET PO SCH (08:31)
[2019-11-06] MEDS: CEPHALEXIN 500 MG CAP PO SCH (08:31)
[2019-11-06] MEDS: ACETAMINOPHEN 500 MG TAB PO SCH (08:32)
[2019-11-06] MEDS ORDERED: OMEP-218 PO (09:50)
[2019-11-06] MEDS ORDERED: AMLO1TAB25 PO (09:50)
[2019-11-06] MEDS ORDERED: METO1TAB87 PO (09:50)
[2019-11-06] MEDS ORDERED: COZA50TA PO (09:50)
[2019-11-06] MEDS ORDERED: ATOR1TAB21 PO (09:50)
[2019-11-06] MEDS ORDERED: XARE15TA PO (09:50)
[2019-11-06] MEDS ORDERED: RISATAB3 PO (09:50)
[2019-11-06] MEDS ORDERED: HYDR25TA PO (09:50)
[2019-11-06] MEDS ORDERED: LEVO75TA4 PO (09:50)
[2019-11-06 11:46] VITALS: BP 134/63
--- NOTE | 2019-11-14 13:07 | PMRDS ---
DATE OF ADMISSION: 10/30/2019 DATE OF DISCHARGE: 11/06/2019 CHIEF COMPLAINT/DISCHARGE DIAGNOSIS: Stroke. HISTORY OF PRESENT ILLNESS: This is an 89-year-old female with a past medical history of osteoarthritis (OA), hypertension, hyperlipidemia, hypothyroidism, right lower extremity deep venous thrombosis (DVT) with pulmonary embolisms (PE), presented to [facility] Emergency Department (ED) on 10/27/2019 with new onset confusion and difficulty communicating with stroke workup initiated. CTH showed acute left superior cerebellar infarct and she was given antiemetics for nausea. She was found to be outside the window for tPA and given IV blood pressure medications. She was noted to have left upper extremity swelling for which Doppler was negative for DVT in the setting of a recent carpal tunnel release surgery. She was started on antibiotics with improvement in her leukocytosis. She developed acute kidney injury (JUNIOR), was evaluated by therapy and found to have impairments in mobility and activities of daily living (ADLs) and deemed medically appropriate for discharge to acute rehabilitation unit (ARU) on 10/30/2019. Overnight, patient had elevated blood pressures (BPs) and was transferred to progressive care unit (PCU) for hypertensive urgency where her medications were adjusted, and she was transferred back to ARU for an interrupted stay on 11/01/2019. 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 She denies any further nausea, vomiting, or new weakness. PAST MEDICAL HISTORY: As per history of present illness (HPI). HOSPITAL COURSE: Patient was admitted and enrolled in a comprehensive physical therapy/occupational therapy (PT/OT) program. She received 24-hour nursing supervision and a weekly team meeting was held to discuss her progress. Patient continued to have elevated blood pressures which responded to the addition of hydralazine and beta pamela. She had no symptoms of nausea, vomiting, or vertigo and made steady and quick gains in therapy, able to ambulate without an assistive device. She was switched from IV cefazolin to Keflex for her left wrist/arm cellulitis with resolution of her symptoms. She was deemed medically and functionally stable to return home on 11/06/2019. DISCHARGE MEDICATIONS: As per instructions. FUNCTIONAL HISTORY ON DISCHARGE: Patient was modified independent and independent for dressing, toileting, and ambulation. Thank you for this referral. SUKHWINDER
== END 2019-11-06 14:10 | disposition home or self-care (01) | DRG 57 ==
LOC: M PM&R 15:25 → UNDODISIN 10-31 05:15
PROVIDERS: ADMIT Physical Medicine & Rehabilitation; ATTEND Physical Medicine & Rehabilitation
DX: I69.398 Other sequelae of cerebral infarction (principal); I50.32 Chronic diastolic (congestive) heart failure; Z74.09 Other reduced mobility; M19.90 Unspecified osteoarthritis, unspecified site; E78.5 Hyperlipidemia, unspecified; E03.9 Hypothyroidism, unspecified; Z86.718 Personal history of other venous thrombosis and embolism; Z90.49 Acquired absence of other specified parts of digestive tract; R26.89 Other abnormalities of gait and mobility; R42 Dizziness and giddiness; R11.2 Nausea with vomiting, unspecified; I11.0 Hypertensive heart disease with heart failure; Z79.01 Long term (current) use of anticoagulants; Z79.899 Other long term (current) drug therapy; Z88.8 Allergy status to other drugs, medicaments and biological substances; Z66 Do not resuscitate

== ENCOUNTER 2019-10-31 05:15 | Inpatient (IN) | payer MEDICARE, OTHER ==
[2019-10-31] VITALS (9 sets, daily range): BP systolic 132–189; BP diastolic 60–85
[~2019-10-31] VITALS: Ht 152.4 cm; Wt 70.0 kg
[~2019-10-31 05:15] MED LIST changes: +ACET-683 PO; +ACET1TAB55 PO; +AMLO1TAB24 PO; +CEFA1INJ4 IV; +DOCU100C16 PO; +LEVO75TA4 PO; +MECL12.589 PO; +RISATAB3 PO; +SENN-52 PO; +TRAM50TA2 PO
[2019-10-31] MEDS ORDERED: hydrALAZINE 20MG/ML 1ML VIAL (J0360 PER 20MG) IV ONE (06:00)
[2019-10-31] MEDS ORDERED: FLEET ENEMA PR PRN (06:00)
[2019-10-31] MEDS ORDERED: ONDANSETRON 4 MG TAB PO PRN (06:00)
[2019-10-31] MEDS ORDERED: hydrALAZINE 20MG/ML 1ML VIAL (J0360 PER 20MG) IV STA (06:04)
--- NOTE | 2019-10-31 06:16 | HPEPDOC ---
[facility] Medical History & Physical Date of Admission Oct 31, 2019 Date of Service: Oct 31, 2019 Attending Physician: DEWEY JACKSON MD History and Physical CHIEF COMPLAINT: Hypertensive urgency HISTORY OF PRESENT ILLNESS: 89yo W with OA, HTN, HLD, hypothyroidism, history of DVT/PEs on rivaroxaban who originally presented to the [facility] ED on 10-27-19 with new onset confusion and dysarthria with word finding difficulties i/s/o her rivaroxaban recently having been held for a carpal tunnel release, and was found to have an acute left superior cerebellar infarct on non contrast head CT. She was unfortunately outside of the tPA window from the onset of symptoms and was treated supportively with antiemetics with strict BP management for hypertensive urgency. She was also noted to have leukocytosis and LUE swelling without evidence of a DVT but was started on ancef for cellulitis. Her inpatient course was c/b an JUNIOR that improved and she was eventually discharged to the ARU on 10/29. Overnight, while in the ARU, she had abdominal discomfort from constipation and was noted to be hypertensive to SBP 200s. At this time, she had been started metop tartrate 25 TID without much effect and was given hydralazine 25mg twice with little improvement 4 hours later to SBP 180s. She was also given a fleet enema for her constipation and had a large BM with resolution of her abdominal discomfort but the HTN persisted. She otherwise remained nonfocal on exam without headache, blurry vision, chest pain, shortness of breath, palpitations nausea or emesis. She is now being re-admitted to medicine for hypertensive urgency. REVIEW OF SYSTEMS: 10 point ROS was completed and was otherwise negative except as noted in the HPI. PAST MEDICAL HISTORY: OA, HTN, HLD, hypothyroidism, history of DVT/PEs on rivaroxaban, recent CVA PAST SURGICAL HISTORY: Hysterectomy, appendectomy, cholecystectomy, carpal tunnel release FAMILY HISTORY: Cancer, CAD SOCIAL HISTORY: No smoking No alcohol use No illicit drug use PHYSICAL EXAMINATION: VITAL SIGNS: Please see below. GENERAL: NAD, pleasant, cooperative HEENT: NCAT, PERRLA, EOMI, dry MM CARDIOVASCULAR: RRR, no mrg LUNGS: CTAB, no rales, rhonchi or wheezing, breathing comfortably on room air ABDOMEN: Normoactive bowel sounds, soft, NTND NEUROLOGICAL: clear speech, CN 2-12 grossly intact, moving all extremities spontaneously, no deficits noted EXT: LUE with midly swollen hand, warm with mild erythema. Otherwise no noted rashes or open lesions per my exam LABORATORY DATA: WBC 9.2 Hgb 11.3 platelets 216 na 137 K 4.7 BUN 25 Cr 1.68 (acutely elevated) ASSESSMENT: 89yo W with OA, HTN, HLD, hypothyroidism, history of DVT/PEs on rivaroxaban who originally presented to the [facility] ED on 10-27-19 with new onset confusion and dysarthria with word finding difficulties i/s/o her rivaroxaban recently having been held for a carpal tunnel release, and was found to have an acute left superior cerebellar infarct, recently discharged to the ARU, now being readmitted to medicine for hypertensive urgency. Hypertensive urgency: improved -was holding ARB due to JUNIOR and plan was to start amlodipine 9/22 AM with TID short acting metoprolol but she became hypertensive overnight, prompting re- admission to PCU -will plan on amlodipine 10mg this morning for 10mg QD. -No need for IV meds, BP already improved Recent left cerebellar stroke -continue symptom management for vertigo/nausea/vomiting with meclizine 12.5 TID as ordered in the ARU and PRN zofran -PT/OT, to consult ARU when BP well controlled for continue intensive therapy -continue home statin diastolic CHF without evidence of decompensation, appears dry -drink to thirst, may consider fluids if JUNIOR persists and if PO is poor -daily weights -strict I/Os JUNIOR: suspect to be prerenal given dry on exam -Drink to thirst -monitor I/Os, if poor PO and worsening JUNIOR would consider fluids -Concetta and UCr for Fena -monitor BMP -daily weights Hx of DVT/PEs -continue with rivaroxaban 15mg daily Hypothyroidism -continue home synthroid LUE cellulitis -Was on ancef in the ARU, will switch to PO keflex GERD -continue home omeprazole Chronic pain -PRN tylenol and tramadol Constipation -fleet enema PRN -BID miralax Dispo: PCU for hypertensive urgency Home Medications Scheduled Acetaminophen (Acetaminophen) 325 Mg Tablet, 1,000 MG PO TID Amlodipine Besylate (Amlodipine Besylate) 5 Mg Tablet, 10 MG PO DAILY Docusate Sodium (Docusate Sodium) 100 Mg Capsule, 100 MG PO BID L.acidoph/L.bulg/B.bif/S.therm (Carol-Bid Caplet) 1 Each Tablet, 1 EA PO WM Levothyroxine Sodium (Levothyroxine Sodium) 75 Mcg Tablet, 75 MCG PO DAILY@06 Meclizine HCl (Meclizine HCl) 12.5 Mg Tablet, 12.5 MG PO TID Omeprazole (Omeprazole) 20 Mg Capsule.dr, 20 MG PO DAILY Rivaroxaban (Xarelto) 15 Mg Tablet, 15 MG PO DAILY@1800 Simvastatin (Simvastatin) 40 Mg Tablet, 40 MG PO QHS Scheduled PRN Tramadol HCl (Tramadol HCl) 50 Mg Tablet, 50 MG PO Q6HP PRN for MODERATE PAIN (PS 5-7) Allergies Coded Allergies: allopurinol (Verified Allergy, Unknown, 10/27/19) doxycycline (Verified Allergy, Unknown, 10/27/19) colchicine (Verified Adverse Reaction, Unknown, gi bleed, 10/27/19) A-FIB/CHADSVASC A-FIB History Current/History of A-Fib/PAF?: No Current PO Anticoag Therapy: Yes Treatment Treatment ordered: Rivaroxaban DEWEY JACKSON MD Oct 31, 2019 06:13
[2019-10-31] MEDS ORDERED: SIMV40TA20 PO (06:30)
[2019-10-31] MEDS ORDERED: LOSA100T50 PO (06:30)
[2019-10-31] MEDS ORDERED: SYNT75TA PO (06:30)
[2019-10-31] MEDS ORDERED: XARE15TA PO (06:30)
[2019-10-31] MEDS ORDERED: OMEP20TA18 PO (06:30)
[2019-10-31] MEDS ORDERED: XALA0.007 OU (06:30)
[2019-10-31] MEDS: LEVOTHYROXINE 75MCG TABLET (0.075MG) PO SCH (07:05)
[2019-10-31] MEDS: amLODIPine 10 MG TAB PO SCH (07:06)
[2019-10-31 07:12] LABS: HEMATOCRIT 36.2 % (36.0-47.0); HEMOGLOBIN 11.7 g/dl (12.0-15.5); MEAN CORPUSCULAR HEMOGLOBIN 31.3 pg (27.0-33.0); MEAN CORPUSCULAR HGB CONC 32.3 g/dl (32.0-36.5); MEAN CORPUSCULAR VOLUME 96.8 fl (80.0-96.0); PLATELET COUNT, AUTOMATED 269 10^3/uL (150-450); RED BLOOD COUNT 3.74 10^6/uL (4.00-5.40); WHITE BLOOD COUNT 9.5 10^3/uL (4.0-10.0)
[2019-10-31 07:33] LABS: ALBUMIN 2.6 GM/DL (3.2-5.2); BILIRUBIN,TOTAL 0.2 MG/DL (0.2-1.0); CALCIUM LEVEL 8.8 MG/DL (8.8-10.2); CREATININE FOR GFR 1.51 MG/DL (0.55-1.30); GLOMERULAR FILTRATION RATE 34.6 (>32); POTASSIUM SERUM 4.5 MEQ/L (3.5-5.1); TOTAL PROTEIN 5.9 GM/DL (6.4-8.2)
[2019-10-31] MEDS ORDERED: **hydrALAZINE HCL** 25 MG TAB PO SCH (09:00)
[2019-10-31] MEDS ORDERED: ACETAMINOPHEN 500 MG TAB PO PRN (09:00)
[2019-10-31] MEDS: OMEPRAZOLE 20 MG CAP PO SCH (09:20)
[2019-10-31] MEDS: CEPHALEXIN 500 MG CAP PO SCH ×4 (09:20→21:01)
[2019-10-31] MEDS: MIRALAX *UNIT DOSE* 17GM PACKET PO SCH ×2 (09:20→21:01)
[2019-10-31] MEDS: MECLIZINE 12.5 MG TAB PO SCH ×3 (09:23→21:01)
[2019-10-31] MEDS: REMEDY PHYTOPLEX Z-GUARD PASTE 113GM TUBE (FROM STOREROOM PRODUCT) TOP SCH ×3 (09:43→21:00)
[2019-10-31] MEDS: traMADol 50 MG TAB PO PRN ×2 (12:38→22:56)
--- NOTE | 2019-10-31 15:26 | IPNPDOC ---
Text Note Date of Service The patient was seen on 10/31/19. NOTE No complaints this afternoon, Bp controlled. Abdominal pain resolved after b owel movement last night. Physical exam unchanged from earlier this morning. Hypertensive urgency resolved. CKD stage 3 creatinine at baseline baseline about 1.4 to 1.5 will restart losartan at lower dose, continue amlodipine and hydralazine No CVA in MRI. Will change simvastatin to atorvastatin as started on amlodipine which has drug interaction. Once off amlodipine can go back to simvastatin. VS,Fishbone, I+O VS, Fishbone, I+O Laboratory Tests 10/31/19 06:48 Vital Signs Date Time Temp Pulse Resp B/P (MAP) Pulse Ox O2 Delivery O2 Flow Rate FiO2 10/31/19 13:33 18 Room Air 10/31/19 12:30 150/68 (95) 10/31/19 12:00 97.9 76 94 2.0 I&O- Last 24 Hours up to 6 AM 10/31/19 06:00 Intake Total 0 ml Output Total 300 ml Balance -300 ml AISHA ESTRADA MD Oct 31, 2019 15:26
[2019-10-31] MEDS: **hydrALAZINE** 50 MG TAB PO SCH ×2 (16:00→21:01)
[2019-10-31] MEDS ORDERED: RIVAROXABAN 10 MG TAB (XARELTO) PO SCH (18:00)
[2019-10-31] MEDS ORDERED: SIMVASTATIN 40 MG TAB PO SCH (21:00)
[2019-10-31] MEDS ORDERED: LOSARTAN 50MG TABLET PO SCH (21:00)
[2019-10-31] MEDS ORDERED: ATORVASTATIN 20 MG TAB PO SCH (21:00)
[2019-11-01] VITALS: BP 151/67
[2019-11-01 04:00] VITALS: BP 172/80
[2019-11-01] MEDS ORDERED: LOSARTAN 50MG TABLET PO ONE (04:30)
[2019-11-01] MEDS: LEVOTHYROXINE 75MCG TABLET (0.075MG) PO SCH (04:49)
[2019-11-01 05:37] LABS: HEMATOCRIT 34.7 % (36.0-47.0); HEMOGLOBIN 11.4 g/dl (12.0-15.5); MEAN CORPUSCULAR HEMOGLOBIN 31.6 pg (27.0-33.0); MEAN CORPUSCULAR HGB CONC 32.9 g/dl (32.0-36.5); MEAN CORPUSCULAR VOLUME 96.1 fl (80.0-96.0); PLATELET COUNT, AUTOMATED 286 10^3/uL (150-450); RED BLOOD COUNT 3.61 10^6/uL (4.00-5.40); WHITE BLOOD COUNT 9.5 10^3/uL (4.0-10.0)
[2019-11-01 05:53] LABS: CALCIUM LEVEL 8.9 MG/DL (8.8-10.2); CREATININE FOR GFR 1.32 MG/DL (0.55-1.30); GLOMERULAR FILTRATION RATE 40.4 (>32); MAGNESIUM LEVEL 2.2 MG/DL (1.8-2.4); POTASSIUM SERUM 4.1 MEQ/L (3.5-5.1)
[2019-11-01] MEDS: traMADol 50 MG TAB PO PRN (05:58)
[2019-11-01 06:45] VITALS: BP 160/78
[2019-11-01] MEDS ORDERED: CEPH500C PO (07:29)
[2019-11-01] MEDS ORDERED: ACET-683 PO (07:29)
[2019-11-01] MEDS ORDERED: LOSA100T50 PO (07:29)
[2019-11-01] MEDS ORDERED: ATOR1TAB21 PO (07:29)
[2019-11-01] MEDS ORDERED: FLEEENE12 PR (07:29)
[2019-11-01] MEDS ORDERED: PEG1POW PO (07:29)
[2019-11-01] MEDS ORDERED: ONDA-83 PO (07:29)
[2019-11-01] MEDS ORDERED: TRAM50TA2 PO (07:29)
[2019-11-01] MEDS ORDERED: MECL12.589 PO (07:29)
[2019-11-01] MEDS ORDERED: AMLO1TAB25 PO (07:29)
[2019-11-01] MEDS ORDERED: HYDR50TA PO (07:29)
[2019-11-01 08:00] VITALS: BP 147/70
[2019-11-01] MEDS: MECLIZINE 12.5 MG TAB PO SCH (08:33)
[2019-11-01] MEDS: MIRALAX *UNIT DOSE* 17GM PACKET PO SCH (08:33)
[2019-11-01 08:34] VITALS: BP 147/70
[2019-11-01] MEDS: OMEPRAZOLE 20 MG CAP PO SCH (08:34)
[2019-11-01] MEDS: amLODIPine 10 MG TAB PO SCH (08:34)
[2019-11-01] MEDS: CEPHALEXIN 500 MG CAP PO SCH (08:34)
[2019-11-01] MEDS: **hydrALAZINE** 50 MG TAB PO SCH (08:35)
[2019-11-01] MEDS: REMEDY PHYTOPLEX Z-GUARD PASTE 113GM TUBE (FROM STOREROOM PRODUCT) TOP SCH (08:35)
--- NOTE | 2019-11-01 15:41 | DS.PDOC ---
Discharge Summary General Date of Admission Oct 31, 2019 at 05:19 Date of Discharge 11/01/19 Discharge Summary PROCEDURES PERFORMED DURING STAY: [None]. 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 She was having difficulty in walking and difficulty in using the walker. She took 4 to 5 tylenol # 3 with out improvement of the pain but felt dizzy and nauseous so went to the orthopedic office and was sent to the ED from there. She was noted to have hypertensive urgency. Initial non contrast CT showed acute left superior cerebellar infarct. However MRI the next day was negative for any acute infarct . So she did not have a CVA. Her confusion was felt to be due to Acute metabolic encephalopathy due to hypertensive urgency and possible post op infection after Left carpal tu nnel release and pain med Tylenol # 3 prescribed after surgery. She was treated supportively with antiemetics with strict BP management for hypertensive urgency. She had leukocytosis and LUE swelling without evidence of a DVT but was started on antibiotics for cellulitis. She was discharged to ARU on 10/30/19. In ARU that same night she had abdominal discomfort from constipation and was noted to be hypertensive to SBP 200s. At that time, she was started on metoprolol tartrate 25 TID without much effect and was given hydralazine 25mg twice with little improvement 4 hours later to SBP 180s. She was also given a fleet enema for her constipation and had a large BM with resolution of her abdom inal discomfort but the HTN persisted. She was re-admitted to medicine for hypertensive urgency. Hypertensive urgency due to uncontrolled wrist pain. resolved. restarted on losartan, added amlodipine and hydralazine. Cellulitis left wrist continue Keflex 11/07 . Antibiotic started on 10/28 pain control with tramadol and tylenol. Hyperlipidemia simvastatin changed to atorvastatin due to drug interaction with amlodipine. Diastolic CHF without evidence of decompensation CKD stage 3 creatinine baseline 1.3 to 1.5 creatinine at baseline Hx of DVT/PEs continue with rivaroxaban 15mg daily Hypothyroidism continue home synthroid GERD continue home omeprazole Chronic pain PRN tylenol and tramadol Constipation fleet enema PRN BID miralax DISCHARGE MEDICATIONS: Please see below. ALLERGIES: Please see below. PHYSICAL EXAMINATION ON DISCHARGE: VITAL SIGNS: Please see below. GENERAL: NAD, pleasant, cooperative HEENT: NCAT, PERRLA, EOMI, dry MM CARDIOVASCULAR: RRR, no mrg LUNGS: CTAB, no rales, rhonchi or wheezing, breathing comfortably on room air ABDOMEN: Normoactive bowel sounds, soft, NTND NEUROLOGICAL: clear speech, CN 2-12 grossly intact, moving all extremities spontaneously, no deficits noted EXT: LUE with midly swollen hand, warm with mild erythema. Otherwise no noted rashes or open lesions per my exam LABORATORY DATA: Please see below. ACTIVITY: [As tolerated]. DIET: As tolerated DISPOSITION: 62 D/T Rehab Facility. DISCHARGE CONDITION: [Stable]. TIME SPENT ON DISCHARGE: 35 minutes. Vital Signs/I&Os Vital Signs Date Time Temp Pulse Resp B/P (MAP) Pulse Ox O2 Delivery O2 Flow Rate FiO2 11/01/19 08:34 80 147/70 11/01/19 08:00 97.4 18 91 Room Air 10/31/19 12:00 2.0 I&O- Last 24 Hours up to 6 AM 11/01/19 06:00 Intake Total 300 ml Output Total 400 ml Balance -100 ml Laboratory Data Labs 24H Laboratory Tests 2 11/01/19 05:08: Nucleated Red Blood Cells % (auto) 0.0, Anion Gap 6L, Glomerular Filtration Rate 40.4, Calcium Level 8.9, Magnesium Level 2.2 CBC/BMP Laboratory Tests 11/01/19 05:08 Discharge Medications Scheduled Amlodipine Besylate (Amlodipine Besylate) 10 Mg Tablet, 10 MG PO DAILY Atorvastatin Calcium (Atorvastatin Calcium) 20 Mg Tablet, 40 MG PO QHS Cephalexin (Cephalexin) 500 Mg Capsule, 500 MG PO QID Hydralazine HCl (Hydralazine HCl) 50 Mg Tablet, 50 MG PO TID Hold if SBP< 160 Latanoprost (Xalatan) 0.005% 2.5ML Drops, 1 DROP OU QHS, (Reported) Levothyroxine Sodium (Synthroid) 75 Mcg Tablet, 75 MCG PO DAILY, (Reported) Losartan Potassium (Losartan Potassium) 100 Mg Tablet, 100 MG PO QHS Meclizine HCl (Meclizine HCl) 12.5 Mg Tablet, 12.5 MG PO TID Omeprazole (Omeprazole) 20 Mg Tablet.dr, 20 MG PO DAILY, (Reported) Polyethylene Glycol 3350 (Polyethylene Glycol 3350) 17 Gm Powd.pack, 1 PKT PO BID Rivaroxaban (Xarelto) 15 Mg Tablet, 15 MG PO QPM, (Reported) AT SUPPER Scheduled PRN Acetaminophen (Acetaminophen) 500 Mg Tablet, 1,000 MG PO TID PRN for PAIN / FEVER Ondansetron HCl (Ondansetron HCl) 4 Mg Tablet, 4 MG PO Q6HP PRN for NAUSEA OR VOMITING Sodium Phosphate,[place]umpkin-Dibasic (Fleet Enema) 133 Ml Enema, 1 EA [place] DAILYPRN PRN for CONSTIPATION Tramadol HCl (Tramadol HCl) 50 Mg Tablet, 50 MG PO Q6HP PRN for MODERATE PAIN (PS 5-7) Allergies Coded Allergies: allopurinol (Verified Allergy, Unknown, 10/27/19) doxycycline (Verified Allergy, Unknown, 10/27/19) colchicine (Verified Adverse Reaction, Unknown, gi bleed, 10/27/19) AISHA ESTRADA MD Nov 01, 2019 15:41
== END 2019-11-01 11:50 | DRG 305 ==
LOC: M PCU 05:19
PROVIDERS: ADMIT Internal Medicine; ATTEND Internal Medicine Nephrology
DX: I16.0 Hypertensive urgency (principal); I50.32 Chronic diastolic (congestive) heart failure; N17.9 Acute kidney failure, unspecified; L03.114 Cellulitis of left upper limb; K59.00 Constipation, unspecified; N18.3 Chronic kidney disease, stage 3 (moderate); M19.90 Unspecified osteoarthritis, unspecified site; E03.9 Hypothyroidism, unspecified; K21.9 Gastro-esophageal reflux disease without esophagitis; M10.9 Gout, unspecified; Z86.718 Personal history of other venous thrombosis and embolism; Z86.711 Personal history of pulmonary embolism; E78.5 Hyperlipidemia, unspecified; Z79.899 Other long term (current) drug therapy; Z88.8 Allergy status to other drugs, medicaments and biological substances; Z86.73 Personal history of transient ischemic attack (TIA), and cerebral infarction without residual deficits

== ENCOUNTER 2019-11-22 09:54 | Outpatient (RCR) | payer MEDICARE, OTHER ==
[~2019-11-22 09:54] MED LIST changes: +AMLO1TAB25 PO; +ATOR1TAB21 PO; +CEPH500C PO; +COZA50TA PO; +FLEEENE12 PR; +HYDR25TA PO; +HYDR50TA PO; +METO1TAB87 PO; +OMEP20TA18 PO; +ONDA-83 PO; +PEG1POW PO; +XALA0.007 OU
== END 2019-12-09 ==
LOC: M OT 09:54
PROVIDERS: ATTEND Physician Assistant
DX: Z47.89 Encounter for other orthopedic aftercare (principal); G56.02 Carpal tunnel syndrome, left upper limb